=== PATIENT | male | born 1955 | race African-American/Black ===

== ENCOUNTER 2017-08-25 15:21 | Inpatient (IN) | payer OTHER ==
[~2017-08-25] VITALS: Ht 170.2 cm; Wt 48.3 kg
[2017-08-25] MEDS ORDERED: NALOXONE HCL 1 MG/ML 2 ML SYG ONE (15:25)
[2017-08-25] MEDS ORDERED: SODIUM CHLORIDE 0.9% 1,000 ML IV ONE ×4 (15:45→20:15)
[2017-08-25] MEDS ORDERED: SUCCINYLCHOLINE CHLORIDE 20 MG/ML 10 ML VIAL IVP ONE (16:30)
[2017-08-25] MEDS ORDERED: ETOMIDATE 2 MG/ML 10 ML VIAL IVP ONE (16:30)
[2017-08-25] MEDS ORDERED: NALOXONE HCL 1 MG/ML 2 ML SYG IVP ONE (16:30)
[2017-08-25 16:33] LABS: HEMOGLOBIN 15.5 g/dL (13.5-17.5); MEAN CORPUSCULAR HEMOGLOBIN 31.4 pg (26.0-34.0); MEAN CORPUSCULAR HGB CONC 30.6 G/dL (31.0-37.0); MEAN CORPUSCULAR VOLUME 103 fL (80-100); PLATELET COUNT (AUTO) 133 K/uL (150-450); RED BLOOD CELL COUNT(AUTO) 4.93 MIL/uL (4.50-5.90); RED CELL DISTRIBUTION WIDTH 15.7 % (11.5-14.5)
[2017-08-25] MEDS ORDERED: IOVERSOL 350 MG/ML 150 ML VIAL ONE (16:36)
[2017-08-25 16:40] LABS: AMPHET/METH SCREEN,URINE NEGATIVE (NEGATIVE); BARBITURATE SCREEN, URINE NEGATIVE (NEGATIVE); BENZODIAZEPINES SCREEN,URINE NEGATIVE (NEGATIVE); CANNABINOID SCREEN,URINE NEGATIVE (NEGATIVE); COCAINE SCREEN,URINE NEGATIVE (NEGATIVE); METHADONE SCREEN, URINE NEGATIVE (NEGATIVE); OPIATE SCREEN,URINE NEGATIVE (NEGATIVE)
[2017-08-25 16:42] LABS: ABG A-A DIFF O2 116.9 mmHg (10-20.0); ABG BASE EXCESS -29.3 mmol/L (-2.0-3.0); ABG CARBOXYHEMOGLOBIN 0.9 % (0.0-1.5); ABG METHEMOGLOBIN 1.1 % (0.0-1.5); ABG OXYGEN CONTENT 24.1 mL/dL (15.0-23.0); ABG PCO2 24 mmHg (35-45); ABG TOTAL HEMOGLOBIN 16.3 G/dL (12.0-18.0); PO2, ARTERIAL BG 582.9 mmHg (79.0-87.0); SOURCE, BLOOD GAS ARTERIAL; TEMPERATURE, FAHRENHEIT, BG 90.5 FAHREN (96.0-98.6)
[2017-08-25 16:42] LABS: PHENCYCLIDINE SCREEN,URINE NEGATIVE (NEGATIVE)
[2017-08-25 16:42] LABS: PROTHROMBIN TIME 10.9 SEC (9.4-11.6)
[2017-08-25 16:45] LABS: AMMONIA 70 umol/L (11-32)
[2017-08-25 16:49] LABS: SALICYLATE 8.9 mg/dL (2.8-20.0)
[2017-08-25 16:53] LABS: TROPONIN I < 0.02 ng/mL (0.00-0.05)
[2017-08-25 16:54] LABS: B-TYPE NATRIURETIC PEPTIDE 131 pg/mL (0-100)
[2017-08-25 17:03] LABS: ALANINE AMINOTRANSFERASE 13 U/L (12-78); ALBUMIN 2.8 g/dL (3.4-5.0); ALKALINE PHOSPHATASE 102 U/L (46-116); ANION GAP 40 mmol/L (8-16); ASPARTATE AMINOTRANSFERASE 24 U/L (15-37); BILIRUBIN,TOTAL 0.7 mg/dL (0.1-1.0); CHLORIDE 98 mmol/L (98-107); CREATINE KINASE MB 1.3 ng/mL (0-5); CREATINE KINASE, TOTAL 108 U/L (39-308); CREATININE 4.47 mg/dL (0.60-1.30); GLOMERULAR FILTR. RATE CALC 16 mL/min (>60); LACTIC ACID 2.5 mmol/L (0.4-2.0); POTASSIUM 5.2 mmol/L (3.5-5.1); SODIUM SERUM 145 mmol/L (136-145); TOTAL PROTEIN, SERUM 6.8 g/dL (6.4-8.2); UREA NITROGEN, BLOOD 75 mg/dL (7-18)
[2017-08-25 17:05] LABS: CARBON DIOXIDE 7 mmol/L (22-29)
[2017-08-25 17:06] LABS: ACETAMINOPHEN < 2 mcg/mL (10-30)
[2017-08-25] MEDS ORDERED: LACTULOSE 200 GM/300 ML RECTAL SOLUTION PR ONE (17:15)
[2017-08-25 17:17] LABS: BAND NEUTROPHILS % (MANUAL) 16 % (0-5); LYMPHOCYTES % (MANUAL) 9 % (22-44); MONOCYTES % (MANUAL) 10 % (2-9); SEGMENTED NEUTROPHILS % 65 % (40-70); WBC MORPHOLOGY TOXIC VACUOLATION
[2017-08-25 17:18] LABS: PLATELET MORPHOLOGY COMMENT LARGE PLTS PRESENT
[2017-08-25 17:24] LABS: GLUCOSE,RANDOM 922 mg/dL (70-110); LIPASE 5068 U/L (73-393)
[2017-08-25] MEDS ORDERED: SUCCINYLCHOLINE CHLORIDE 20 MG/ML 10 ML VIAL IM ONE (17:30)
[2017-08-25] MEDS ORDERED: ETOMIDATE 2 MG/ML 10 ML VIAL IV ONE (17:30)
[2017-08-25 17:35] LABS: APPEARANCE,URINE HAZY (CLEAR); PH,URINE 5.5 (5.0-8.0); PROTEIN,URINE SEE CONFIRM (NEGATIVE)
[2017-08-25 17:36] LABS: BILIRUBIN,URINE PRELIM. POSITIVE (NEGATIVE); GLUCOSE, URINE (UA) 500 mg/dL (NEGATIVE); KETONES,URINE >=80 mg/dL (NEGATIVE); LEUKOCYTE ESTERASE ,URINE NEGATIVE (NEGATIVE); NITRATE,URINE NEGATIVE (NEGATIVE); OCCULT BLOOD,URINE NEGATIVE (NEGATIVE); UROBILINOGEN,URINE 0.2 mg/dL (<=1.0)
[2017-08-25 17:44] LABS: BACTERIA,URINE Rare /HPF (None Seen); RBC,URINE None Seen /HPF (0-2); WBC,URINE 0-2 /HPF (0-5)
[2017-08-25 17:45] LABS: SQUAMOUS EPITHELIAL CELL,UR Rare /LPF (None Seen); SULFOSALICYLIC ACID,URINE 1+ (Negative)
[2017-08-25] MEDS ORDERED: INSULIN REGULAR, HUMAN 100 UNITS/ML IVP ONE (17:45)
[2017-08-25] MEDS ORDERED: INSULIN REGULAR, HUMAN 100 UNITS in SODIUM CHLORIDE 0.9% 99 ML IV PRN ×2 (17:45)
[2017-08-25 17:51] LABS: ABG HCO3 6.2 mmol/L (22.0-26.0); ABG PH 6.883 (7.35-7.450); O2 DEVICE,BLOOD GAS VENTILATOR (ROOM AIR); SITE, BLOOD GAS LFT RADIAL
[2017-08-25 17:52] LABS: PEEP,BG 5 cm H2O; VT, ABG 400 ml
[2017-08-25 18:30] LABS: CALCIUM, TOTAL 7.8 mg/dL (8.8-10.5); CREATININE 4.72 mg/dL (0.60-1.30); POTASSIUM 4.6 mmol/L (3.5-5.1)
[2017-08-25] MEDS ORDERED: ONDANSETRON HCL 4 MG/2 ML VIAL IVP PRN ×2 (18:30→19:45)
[2017-08-25] MEDS ORDERED: ACETAMINOPHEN 325 MG TABLET PO PRN ×2 (18:30→19:45)
[2017-08-25] MEDS ORDERED: 0.9% SODIUM CHLORIDE 10 ML SYRINGE IVP PRN (18:30)
[2017-08-25 19:33] LABS: GLUCOSE,POINT OF CARE > 600 MG/DL (70-110)
[2017-08-25] MEDS: SODIUM CHLORIDE 0.9% 1,000 ML IV SCH (19:34)
[2017-08-25] MEDS ORDERED: SODIUM CHLORIDE 0.9% 1,000 ML IV SCH (19:34)
[2017-08-25] MEDS ORDERED: SODIUM CHLORIDE 0.45% 1,000 ML IV PRN (19:34)
[2017-08-25] MEDS ORDERED: POTASSIUM CHLORIDE 20 MEQ ER TABLET PO PRN (19:45)
[2017-08-25] MEDS ORDERED: MAGNESIUM HYDROXIDE SUSPENSION 30 ML UDCUP PO PRN (19:45)
[2017-08-25] MEDS ORDERED: MAGNESIUM OXIDE 400 MG TABLET PO PRN (19:45)
[2017-08-25] MEDS ORDERED: IPRATROPIUM BROMIDE 0.5 MG/2.5 ML NEB SOLUTION NEB PRN (19:45)
[2017-08-25] MEDS ORDERED: BISACODYL 10 MG RECTAL RECTAL SUPPOSITORY PR PRN (19:45)
[2017-08-25] MEDS ORDERED: ZOLPIDEM TARTRATE 5 MG TABLET PO PRN (19:45)
[2017-08-25] MEDS ORDERED: DEXTROSE 50%-WATER 25 GM/50 ML SYRINGE IVP PRN (19:45)
[2017-08-25] MEDS ORDERED: MAGNESIUM SULFATE 4 GM/WATER 100 ML IV PRN (19:45)
[2017-08-25] MEDS ORDERED: OxyCODONE HCL/ACETAMINOPHEN 5-325 MG TABLET PO PRN (19:45)
[2017-08-25] MEDS ORDERED: ALBUTEROL SULFATE 2.5 MG/0.5 ML NEB SOLUTION NEB PRN (19:45)
[2017-08-25] MEDS ORDERED: VANCOMYCIN HCL 1 GM/D5% WATER 200 ML IV ONE (20:00)
[2017-08-25] MEDS ORDERED: VANCOMYCIN HCL 1 GM/D5% WATER 200 ML IV PRN (20:30)
[2017-08-25 21:02] LABS: ABG A-A DIFF O2 65.8 mmHg (10-20.0); ABG BASE EXCESS -25.5 mmol/L (-2.0-3.0); ABG CARBOXYHEMOGLOBIN 1.2 % (0.0-1.5); ABG METHEMOGLOBIN 0.5 % (0.0-1.5); ABG OXYGEN CONTENT 20.5 mL/dL (15.0-23.0); ABG OXYGEN SATURATION 99.2 % (95.0-98.0); ABG OXYHEMOGLOBIN 97.5 % (94.0-100.0); ABG PCO2 20 mmHg (35-45); ABG TOTAL HEMOGLOBIN 14.6 G/dL (12.0-18.0); PO2, ARTERIAL BG 200.1 mmHg (79.0-87.0); SOURCE, BLOOD GAS ARTERIAL; TEMPERATURE, FAHRENHEIT, BG 91.6 FAHREN (96.0-98.6)
[2017-08-25 21:04] LABS: O2 DEVICE,BLOOD GAS VENTILATOR (ROOM AIR); PEEP,BG 5 cm H2O; SITE, BLOOD GAS RT RADIAL; VT, ABG 400 ml
[2017-08-25 21:05] LABS: SPONTANEOUS VT, BG 638 ml
[2017-08-25 21:06] LABS: HEMATOCRIT 45.2 % (41-53); HEMOGLOBIN 14.8 g/dL (13.5-17.5); MEAN CORPUSCULAR HEMOGLOBIN 31.7 pg (26.0-34.0); MEAN CORPUSCULAR HGB CONC 32.8 G/dL (31.0-37.0); MEAN CORPUSCULAR VOLUME 97 fL (80-100); RED BLOOD CELL COUNT(AUTO) 4.67 MIL/uL (4.50-5.90); RED CELL DISTRIBUTION WIDTH 14.6 % (11.5-14.5)
[2017-08-25 21:08] LABS: OCCULT BLOOD,GASTRIC FLUID POSITIVE (NEGATIVE)
[2017-08-25 21:21] LABS: ANION GAP 33 mmol/L (8-16); CARBON DIOXIDE 10 mmol/L (22-29); CHLORIDE 108 mmol/L (98-107); CREATININE 4.37 mg/dL (0.60-1.30); GLOMERULAR FILTR. RATE CALC 17 mL/min (>60); POTASSIUM 3.2 mmol/L (3.5-5.1); SODIUM SERUM 151 mmol/L (136-145); UREA NITROGEN, BLOOD 82 mg/dL (7-18)
[2017-08-25 21:42] LABS: PLATELET COUNT (AUTO) 95 K/uL (150-450)
[2017-08-25 21:43] LABS: PLATELET MORPHOLOGY COMMENT LARGE PLTS PRESENT
[2017-08-25] MEDS: NOREPINEPHRINE 4 MG/D5%-WATER 250 ML IV PRN (21:45)
[2017-08-25 21:48] LABS: BAND NEUTROPHILS % (MANUAL) 16 % (0-5); LYMPHOCYTES % (MANUAL) 11 % (22-44); MONOCYTES % (MANUAL) 5 % (2-9); SEGMENTED NEUTROPHILS % 68 % (40-70)
[2017-08-25 21:52] LABS: WBC MORPHOLOGY TOXIC VACUOLATION
[2017-08-25 21:54] LABS: GLUCOSE,RANDOM 586 mg/dL (70-110); PHOSPHORUS 9.6 mg/dL (2.5-4.9)
[2017-08-25] MEDS: INSULIN REGULAR, HUMAN 100 UNITS/ML IVP PRN ×2 (22:26→23:25)
[2017-08-25] MEDS: POTASSIUM CHLORIDE 40 MEQ in SODIUM CHLORIDE 0.45% 1,000 ML IV PRN (23:00)
[2017-08-25] MEDS: POTASSIUM CHL 10 MEQ/WATER 50 ML IV PRN (23:24)
[2017-08-25] MEDS: PIPERACILLIN SODIUM/TAZOBACTAM 2.25 GM in DEXTROSE 5%-WATER 50 ML IV SCH (23:26)
[2017-08-25] MEDS: HEPARIN SODIUM,PORCINE 5,000 UNITS/ML VIAL SQ SCH (23:26)
[2017-08-26] VITALS: BP 81/49
[2017-08-26] MEDS: INSULIN REGULAR, HUMAN 100 UNITS/ML IVP PRN ×9 (00:16→09:10)
[2017-08-26] MEDS: POTASSIUM CHL 10 MEQ/WATER 50 ML IV PRN ×2 (00:23→01:25)
[2017-08-26] MEDS: INSULIN REGULAR, HUMAN 100 UNITS in SODIUM CHLORIDE 0.9% 99 ML IV PRN ×6 (01:41→15:27)
[2017-08-26] MEDS: SODIUM CHLORIDE 0.9% 1,000 ML IV SCH ×3 (03:34→17:39)
[2017-08-26 03:57] LABS: BASOPHILS % (AUTO) 0.9 % (0.0-2.0); EOSINOPHILS % (AUTO) 0.2 % (1.0-6.0); HEMATOCRIT 43.6 % (41-53); HEMOGLOBIN 14.4 g/dL (13.5-17.5); LYMPHOCYTES # (AUTO) 0.6 K/uL (1.0-4.8); LYMPHOCYTES % (AUTO) 11.2 % (22.0-44.0); MEAN CORPUSCULAR HEMOGLOBIN 31.2 pg (26.0-34.0); MEAN CORPUSCULAR HGB CONC 32.9 G/dL (31.0-37.0); MEAN CORPUSCULAR VOLUME 95 fL (80-100); MONOCYTES # (AUTO) 0.3 K/uL (0.1-1.0); MONOCYTES % (AUTO) 5.2 % (2.0-9.0); NEUTROPHILS # (AUTO) 4.3 K/uL (1.8-7.7); NEUTROPHILS % (AUTO) 82.5 % (40.0-70.0); PLATELET COUNT (AUTO) 60 K/uL (150-450); RED CELL DISTRIBUTION WIDTH 14.4 % (11.5-14.5)
[2017-08-26 04:00] VITALS: BP 103/55
[2017-08-26 04:11] LABS: CREATININE,URINE RANDOM 49.1 mg/dL (30.0-125.0)
[2017-08-26 04:14] LABS: HEMOGLOBIN A1C 11.5 % (4.5-6.2)
[2017-08-26 04:16] LABS: ALBUMIN 2.1 g/dL (3.4-5.0); BILIRUBIN,TOTAL 0.6 mg/dL (0.1-1.0); CALCIUM, TOTAL 6.7 mg/dL (8.8-10.5); CREATININE 4.36 mg/dL (0.60-1.30); MAGNESIUM 1.7 mg/dL (1.80-2.40); PHOSPHORUS 4.5 mg/dL (2.5-4.9); TOTAL PROTEIN, SERUM 5.4 g/dL (6.4-8.2)
[2017-08-26 06:32] LABS: CREATININE 4.16 mg/dL (0.60-1.30); POTASSIUM 3.6 mmol/L (3.5-5.1)
[2017-08-26] MEDS: PHENYLEPHRINE 200 MG/D5%-WATER 250 ML IV PRN ×2 (06:39→23:55)
[2017-08-26] MEDS: NOREPINEPHRINE 4 MG/D5%-WATER 250 ML IV PRN ×4 (06:50→21:24)
[2017-08-26 07:13] LABS: CALCIUM, TOTAL 6.1 mg/dL (8.8-10.5)
[2017-08-26 08:00] VITALS: BP 98/46
[2017-08-26] MEDS: POTASSIUM CHLORIDE 40 MEQ in SODIUM CHLORIDE 0.45% 1,000 ML IV PRN (08:07)
[2017-08-26] MEDS: PIPERACILLIN SODIUM/TAZOBACTAM 2.25 GM in DEXTROSE 5%-WATER 50 ML IV SCH ×3 (08:07→23:56)
[2017-08-26] MEDS: HEPARIN SODIUM,PORCINE 5,000 UNITS/ML VIAL SQ SCH ×2 (08:08→21:00)
[2017-08-26] MEDS: PANTOPRAZOLE SODIUM 40 MG/VIAL IVP SCH (08:08)
[2017-08-26] MEDS ORDERED: SODIUM CHLORIDE 0.9% 500 ML IV ONE (09:54)
[2017-08-26 11:52] LABS: CALCIUM, TOTAL 6.3 mg/dL (8.8-10.5); CREATININE 4.75 mg/dL (0.60-1.30); POTASSIUM 4.2 mmol/L (3.5-5.1)
[2017-08-26 12:00] VITALS: BP 108/35
[2017-08-26 12:28] LABS: CKMB RELATIVE INDEX 1.8 % (0.0-4.0); CREATINE KINASE MB 17.1 ng/mL (0-5)
[2017-08-26] MEDS ORDERED: HEPARIN SODIUM,PORCINE 1,000 UNITS/ML VIAL IV STA (14:10)
[2017-08-26] MEDS ORDERED: HEPARIN SODIUM,PORCINE 1,000 UNITS/ML VIAL IVP STA (14:10)
[2017-08-26] MEDS ORDERED: HEPARIN SODIUM 1000 UNITS/NS 500 ML ONE (14:25)
[2017-08-26 14:51] LABS: CALCIUM, TOTAL 6.5 mg/dL (8.8-10.5); CREATININE 4.6 mg/dL (0.60-1.30); POTASSIUM 4.8 mmol/L (3.5-5.1)
[2017-08-26 14:57] LABS: ABG CARBOXYHEMOGLOBIN 1.1 % (0.0-1.5); ABG METHEMOGLOBIN 0.1 % (0.0-1.5); SOURCE, BLOOD GAS ARTERIAL
[2017-08-26 15:00] LABS: ABG A-A DIFF O2 129.8 mmHg (10-20.0); ABG BASE EXCESS -20.6 mmol/L (-2.0-3.0); ABG HCO3 10.3 mmol/L (22.0-26.0); ABG OXYGEN CONTENT 19.5 mL/dL (15.0-23.0); ABG OXYGEN SATURATION 97.6 % (95.0-98.0); ABG OXYHEMOGLOBIN 96.4 % (94.0-100.0); ABG PCO2 36 mmHg (35-45); ABG PH 7.055 (7.35-7.450); ABG TOTAL HEMOGLOBIN 14.3 G/dL (12.0-18.0); PO2, ARTERIAL BG 114.4 mmHg (79.0-87.0); SITE, BLOOD GAS ARTERIAL LINE; TEMPERATURE, FAHRENHEIT, BG 98.4 FAHREN (96.0-98.6)
[2017-08-26 15:01] LABS: O2 DEVICE,BLOOD GAS VENTILATOR (ROOM AIR); VT, ABG 400 ml
[2017-08-26 15:02] LABS: PEEP,BG 5 cm H2O
[2017-08-26] MEDS: POTASSIUM CHL 20 MEQ/0.45% NS 1,000 ML IV PRN ×2 (15:09→15:27)
[2017-08-26] MEDS: DEXTROSE 5%-0.45% SODIUM CHL 1,000 ML IV PRN ×2 (15:09→15:28)
[2017-08-26] MEDS: VASOPRESSIN 40 UNITS in DEXTROSE 5%-WATER 98 ML IV PRN (15:41)
[2017-08-26 16:37] LABS: ABG A-A DIFF O2 122.1 mmHg (10-20.0); ABG BASE EXCESS -22.4 mmol/L (-2.0-3.0); ABG METHEMOGLOBIN 0.3 % (0.0-1.5); ABG OXYGEN CONTENT 18.3 mL/dL (15.0-23.0); ABG OXYGEN SATURATION 94.9 % (95.0-98.0); ABG OXYHEMOGLOBIN 93.7 % (94.0-100.0); ABG PCO2 31 mmHg (35-45); ABG TOTAL HEMOGLOBIN 13.8 G/dL (12.0-18.0); PO2, ARTERIAL BG 91.6 mmHg (79.0-87.0); SOURCE, BLOOD GAS ARTERIAL; TEMPERATURE, FAHRENHEIT, BG 98.9 FAHREN (96.0-98.6)
[2017-08-26 16:38] LABS: ABG HCO3 9.3 mmol/L (22.0-26.0); ABG PH 7.044 (7.35-7.450); O2 DEVICE,BLOOD GAS VENTILATOR (ROOM AIR); SITE, BLOOD GAS ARTERIAL LINE; VT, ABG 400 ml
[2017-08-26 16:39] LABS: PEEP,BG 5 cm H2O
[2017-08-26] MEDS ORDERED: SODIUM BICARBONATE [ADULT] 8.4% 50 MEQ/50 ML SYRINGE IVP ONE ×2 (16:51→17:00)
[2017-08-26] MEDS ORDERED: SODIUM CHLORIDE 0.9% 250 ML IV ONE (17:08)
[2017-08-26 18:00] VITALS: BP 114/22
[2017-08-26 18:42] LABS: GLUCOSE,POINT OF CARE 285 MG/DL (70-110)
[2017-08-26 18:42] LABS: GLUCOSE,POINT OF CARE 285 MG/DL (70-110)
[2017-08-26 18:42] LABS: GLUCOSE,POINT OF CARE 270 MG/DL (70-110)
[2017-08-26 18:43] LABS: GLUCOSE,POINT OF CARE 135 MG/DL (70-110)
[2017-08-26 18:43] LABS: GLUCOSE,POINT OF CARE 188 MG/DL (70-110)
[2017-08-26 18:43] LABS: GLUCOSE,POINT OF CARE 157 MG/DL (70-110)
[2017-08-26 18:43] LABS: GLUCOSE,POINT OF CARE 87 MG/DL (70-110)
[2017-08-26 18:43] LABS: GLUCOSE,POINT OF CARE 87 MG/DL (70-110)
[2017-08-26 18:43] LABS: GLUCOSE,POINT OF CARE 173 MG/DL (70-110)
[2017-08-26 18:43] LABS: GLUCOSE,POINT OF CARE 238 MG/DL (70-110)
[2017-08-26 18:43] LABS: GLUCOSE,POINT OF CARE 88 MG/DL (70-110)
[2017-08-26 20:00] VITALS: BP 120/27
[2017-08-26 20:12] LABS: GLUCOSE,POINT OF CARE 441 MG/DL (70-110)
[2017-08-26 20:13] LABS: GLUCOSE,POINT OF CARE 431 MG/DL (70-110)
[2017-08-26 20:13] LABS: GLUCOSE,POINT OF CARE 457 MG/DL (70-110)
[2017-08-26 20:13] LABS: GLUCOSE,POINT OF CARE 302 MG/DL (70-110)
[2017-08-26 20:13] LABS: GLUCOSE,POINT OF CARE 347 MG/DL (70-110)
[2017-08-26 20:13] LABS: GLUCOSE,POINT OF CARE 391 MG/DL (70-110)
[2017-08-26 20:13] LABS: ABG A-A DIFF O2 129.9 mmHg (10-20.0); ABG BASE EXCESS -16.2 mmol/L (-2.0-3.0); ABG CARBOXYHEMOGLOBIN 1.3 % (0.0-1.5); ABG HCO3 12.9 mmol/L (22.0-26.0); ABG METHEMOGLOBIN 0.3 % (0.0-1.5); ABG OXYGEN CONTENT 18.2 mL/dL (15.0-23.0); ABG OXYGEN SATURATION 93.1 % (95.0-98.0); ABG OXYHEMOGLOBIN 91.6 % (94.0-100.0); ABG PCO2 37 mmHg (35-45); ABG TOTAL HEMOGLOBIN 14.1 G/dL (12.0-18.0); PO2, ARTERIAL BG 76.3 mmHg (79.0-87.0); TEMPERATURE, FAHRENHEIT, BG 99.1 FAHREN (96.0-98.6)
[2017-08-26 20:13] LABS: GLUCOSE,POINT OF CARE 354 MG/DL (70-110)
[2017-08-26 20:13] LABS: GLUCOSE,POINT OF CARE 450 MG/DL (70-110)
[2017-08-26 20:13] LABS: GLUCOSE,POINT OF CARE 384 MG/DL (70-110)
[2017-08-26 20:24] LABS: SITE, BLOOD GAS RT FEMORAL
[2017-08-26 20:25] LABS: O2 DEVICE,BLOOD GAS VENTILATOR (ROOM AIR); PEEP,BG 5 cm H2O; SOURCE, BLOOD GAS ART LINE; VT, ABG 400 ml
[2017-08-26 21:25] LABS: CALCIUM, TOTAL 6.1 mg/dL (8.8-10.5); CREATINE KINASE MB 26.7 ng/mL (0-5); CREATININE 4.52 mg/dL (0.60-1.30); POTASSIUM 4.7 mmol/L (3.5-5.1)
[2017-08-26 21:28] LABS: CKMB RELATIVE INDEX 1.7 % (0.0-4.0)
[2017-08-27] VITALS: BP 115/36
[2017-08-27 01:07] LABS: GLUCOSE,POINT OF CARE 85 MG/DL (70-110)
[2017-08-27 01:07] LABS: GLUCOSE,POINT OF CARE 84 MG/DL (70-110)
[2017-08-27 01:07] LABS: GLUCOSE,POINT OF CARE 94 MG/DL (70-110)
[2017-08-27 01:07] LABS: GLUCOSE,POINT OF CARE 105 MG/DL (70-110)
[2017-08-27 01:07] LABS: GLUCOSE,POINT OF CARE 115 MG/DL (70-110)
[2017-08-27 01:07] LABS: GLUCOSE,POINT OF CARE 96 MG/DL (70-110)
[2017-08-27] MEDS ORDERED: POTASSIUM CHL 20 MEQ/0.45% NS 1,000 ML IV PRN (03:00)
[2017-08-27] MEDS: NOREPINEPHRINE BITARTRATE 8 MG in DEXTROSE 5%-WATER 242 ML IV PRN ×2 (03:21→13:36)
[2017-08-27] MEDS: VASOPRESSIN 40 UNITS in DEXTROSE 5%-WATER 98 ML IV PRN ×2 (03:22→20:54)
[2017-08-27] MEDS: DEXTROSE 5%-0.45% SODIUM CHL 1,000 ML IV PRN ×2 (03:27→15:47)
[2017-08-27] MEDS: SODIUM CHLORIDE 0.9% 1,000 ML IV SCH (03:34)
[2017-08-27 03:48] LABS: GLUCOSE,POINT OF CARE 99 MG/DL (70-110)
[2017-08-27 03:48] LABS: GLUCOSE,POINT OF CARE 91 MG/DL (70-110)
[2017-08-27 04:00] VITALS: BP 124/47
[2017-08-27 06:47] LABS: BASOPHILS % (AUTO) 0.5 % (0.0-2.0); EOSINOPHILS % (AUTO) 0.7 % (1.0-6.0); HEMATOCRIT 38.7 % (41-53); HEMOGLOBIN 13.4 g/dL (13.5-17.5); LYMPHOCYTES # (AUTO) 0.4 K/uL (1.0-4.8); LYMPHOCYTES % (AUTO) 9.3 % (22.0-44.0); MEAN CORPUSCULAR HEMOGLOBIN 31.4 pg (26.0-34.0); MEAN CORPUSCULAR HGB CONC 34.7 G/dL (31.0-37.0); MEAN CORPUSCULAR VOLUME 91 fL (80-100); MONOCYTES # (AUTO) 0.2 K/uL (0.1-1.0); MONOCYTES % (AUTO) 3.8 % (2.0-9.0); NEUTROPHILS # (AUTO) 3.9 K/uL (1.8-7.7); RED BLOOD CELL COUNT(AUTO) 4.28 MIL/uL (4.50-5.90); RED CELL DISTRIBUTION WIDTH 14.5 % (11.5-14.5)
[2017-08-27 06:49] LABS: GLUCOSE,POINT OF CARE 116 MG/DL (70-110)
[2017-08-27 06:49] LABS: GLUCOSE,POINT OF CARE 99 MG/DL (70-110)
[2017-08-27 06:49] LABS: GLUCOSE,POINT OF CARE 109 MG/DL (70-110)
[2017-08-27 07:00] LABS: NEUTROPHILS % (AUTO) 85.7 % (40.0-70.0); PLATELET COUNT (AUTO) 23 K/uL (150-450)
[2017-08-27 07:01] LABS: PLATELET MORPHOLOGY COMMENT LARGE PLTS PRESENT
[2017-08-27 08:00] VITALS: BP 103/38
[2017-08-27 08:16] LABS: ALBUMIN 1.4 g/dL (3.4-5.0); BILIRUBIN,TOTAL 0.5 mg/dL (0.1-1.0); CREATINE KINASE MB 38.1 ng/mL (0-5); CREATININE 3.48 mg/dL (0.60-1.30); MAGNESIUM 1.3 mg/dL (1.80-2.40); PHOSPHORUS 3.3 mg/dL (2.5-4.9); POTASSIUM 5.6 mmol/L (3.5-5.1); THYROID STIMULATING HORMONE 0.8 uIU/mL (0.36-3.74); TOTAL PROTEIN, SERUM 4.4 g/dL (6.4-8.2); VANCOMYCIN,RANDOM 11.6 mcg/mL (25.0-50.0)
[2017-08-27 08:22] LABS: CKMB RELATIVE INDEX 1.7 % (0.0-4.0)
[2017-08-27] MEDS: PANTOPRAZOLE SODIUM 40 MG/VIAL IVP SCH (08:26)
[2017-08-27 08:47] LABS: ABG A-A DIFF O2 167.4 mmHg (10-20.0); ABG BASE EXCESS -16.2 mmol/L (-2.0-3.0); ABG CARBOXYHEMOGLOBIN 0.9 % (0.0-1.5); ABG HCO3 13.1 mmol/L (22.0-26.0); ABG METHEMOGLOBIN 0.3 % (0.0-1.5); ABG OXYGEN CONTENT 15.4 mL/dL (15.0-23.0); ABG OXYGEN SATURATION 90.2 % (95.0-98.0); ABG OXYHEMOGLOBIN 89.1 % (94.0-100.0); ABG PCO2 26 mmHg (35-45); ABG PH 7.251 (7.35-7.450); ABG TOTAL HEMOGLOBIN 12.3 G/dL (12.0-18.0); PO2, ARTERIAL BG 53.9 mmHg (79.0-87.0); SOURCE, BLOOD GAS ARTERIAL; TEMPERATURE, FAHRENHEIT, BG 94.1 FAHREN (96.0-98.6)
[2017-08-27] MEDS: PIPERACILLIN SODIUM/TAZOBACTAM 4.5 GM in DEXTROSE 5%-WATER 100 ML IV SCH ×2 (08:48→17:11)
[2017-08-27 08:50] LABS: O2 DEVICE,BLOOD GAS VENTILATOR (ROOM AIR); SITE, BLOOD GAS ARTLINE
[2017-08-27 08:53] LABS: PEEP,BG 5 cm H2O; VT, ABG 400 ml
[2017-08-27] MEDS ORDERED: VANCOMYCIN HCL 1 GM/D5% WATER 200 ML IV ONE (09:00)
[2017-08-27] MEDS ORDERED: MAGNESIUM SULFATE 4 GM/WATER 100 ML IV ONE (09:45)
[2017-08-27] MEDS ORDERED: SODIUM CITRATE 4% CATH FLUSH 5 ML SYRINGE IVCATH ONE ×3 (09:45→13:15)
[2017-08-27] MEDS ORDERED: SODIUM CHLORIDE 0.45% 1,000 ML IV SCH (10:30)
[2017-08-27] MEDS ORDERED: SODIUM CHLORIDE 0.45% 1,000 ML IV ONE (10:40)
[2017-08-27] MEDS: DOPamine HCL 400 MG/D5%-WATER 250 ML IV PRN (10:45)
[2017-08-27 11:13] LABS: ABG A-A DIFF O2 254.6 mmHg (10-20.0); ABG BASE EXCESS -20.4 mmol/L (-2.0-3.0); ABG CARBOXYHEMOGLOBIN 1.2 % (0.0-1.5); ABG HCO3 10.3 mmol/L (22.0-26.0); ABG METHEMOGLOBIN 0.3 % (0.0-1.5); ABG OXYGEN CONTENT 17.4 mL/dL (15.0-23.0); ABG OXYGEN SATURATION 93.3 % (95.0-98.0); ABG OXYHEMOGLOBIN 91.9 % (94.0-100.0); ABG PCO2 30 mmHg (35-45); ABG TOTAL HEMOGLOBIN 13.4 G/dL (12.0-18.0); PO2, ARTERIAL BG 71.3 mmHg (79.0-87.0); SOURCE, BLOOD GAS ARTERIAL; TEMPERATURE, FAHRENHEIT, BG 94.1 FAHREN (96.0-98.6)
[2017-08-27 11:14] LABS: O2 DEVICE,BLOOD GAS VENTILATOR (ROOM AIR); PEEP,BG 5 cm H2O; SITE, BLOOD GAS ARTLINE; VT, ABG 400 ml
[2017-08-27 11:18] LABS: ALBUMIN 1.3 g/dL (3.4-5.0); BILIRUBIN,TOTAL 0.5 mg/dL (0.1-1.0); CREATININE 3.61 mg/dL (0.60-1.30); POTASSIUM 5.9 mmol/L (3.5-5.1)
[2017-08-27 11:34] LABS: CALCIUM, TOTAL 5.9 mg/dL (8.8-10.5)
[2017-08-27] MEDS ORDERED: CALCIUM GLUCONATE 100 MG/ML 10 ML IVP ONE (11:45)
[2017-08-27] MEDS ORDERED: SODIUM CHLORIDE 0.9% 2,000 ML IV ONE (11:56)
[2017-08-27 12:00] VITALS: BP 231/58
[2017-08-27] MEDS ORDERED: SODIUM BICARBONATE [ADULT] 8.4% 50 MEQ/50 ML SYRINGE IVP ONE (12:15)
[2017-08-27 12:48] LABS: GLUCOSE,POINT OF CARE 117 MG/DL (70-110)
[2017-08-27 15:05] LABS: ALBUMIN 1.3 g/dL (3.4-5.0); BILIRUBIN,TOTAL 0.6 mg/dL (0.1-1.0); CALCIUM, TOTAL 6.1 mg/dL (8.8-10.5); CREATININE 3.03 mg/dL (0.60-1.30); POTASSIUM 5.1 mmol/L (3.5-5.1); TOTAL PROTEIN, SERUM 4.1 g/dL (6.4-8.2)
[2017-08-27 15:13] LABS: BASOPHILS % (AUTO) 0.2 % (0.0-2.0); EOSINOPHILS % (AUTO) 0.5 % (1.0-6.0); HEMATOCRIT 37.6 % (41-53); LYMPHOCYTES # (AUTO) 0.3 K/uL (1.0-4.8); LYMPHOCYTES % (AUTO) 7.4 % (22.0-44.0); MEAN CORPUSCULAR HEMOGLOBIN 31.1 pg (26.0-34.0); MEAN CORPUSCULAR HGB CONC 34.5 G/dL (31.0-37.0); MEAN CORPUSCULAR VOLUME 90 fL (80-100); MONOCYTES # (AUTO) 0.1 K/uL (0.1-1.0); MONOCYTES % (AUTO) 2.6 % (2.0-9.0); NEUTROPHILS # (AUTO) 3.3 K/uL (1.8-7.7); RED BLOOD CELL COUNT(AUTO) 4.17 MIL/uL (4.50-5.90); RED CELL DISTRIBUTION WIDTH 15.2 % (11.5-14.5)
[2017-08-27 15:37] LABS: NEUTROPHILS % (AUTO) 89.3 % (40.0-70.0); PLATELET COUNT (AUTO) 12 K/uL (150-450); PLATELET MORPHOLOGY COMMENT LARGE PLTS PRESENT
[2017-08-27 16:00] VITALS: BP 140/48
[2017-08-27] MEDS: PANTOPRAZOLE SODIUM 80 MG in SODIUM CHLORIDE 0.9% 100 ML IV SCH (17:18)
[2017-08-27] MEDS: PHENYLEPHRINE 200 MG/D5%-WATER 250 ML IV PRN (17:20)
[2017-08-27 19:23] LABS: ALBUMIN 1.2 g/dL (3.4-5.0); BILIRUBIN,TOTAL 0.5 mg/dL (0.1-1.0); CREATININE 2.73 mg/dL (0.60-1.30); POTASSIUM 4.8 mmol/L (3.5-5.1); TOTAL PROTEIN, SERUM 3.8 g/dL (6.4-8.2)
[2017-08-27 19:38] LABS: CALCIUM, TOTAL 5.8 mg/dL (8.8-10.5)
[2017-08-27 20:00] VITALS: BP 143/34
[2017-08-27] MEDS: SODIUM CHLORIDE 0.45% 1,000 ML IV PRN (20:47)
[2017-08-27] MEDS ORDERED: CALCIUM GLUCONATE 2,000 MG in DEXTROSE 5%-WATER 50 ML IV ONE (22:30)
[2017-08-27 22:59] LABS: ALBUMIN 1.1 g/dL (3.4-5.0); BILIRUBIN,TOTAL 0.4 mg/dL (0.1-1.0); CREATININE 2.38 mg/dL (0.60-1.30); TOTAL PROTEIN, SERUM 3.7 g/dL (6.4-8.2)
[2017-08-27 23:10] LABS: CALCIUM, TOTAL 5.9 mg/dL (8.8-10.5)
[2017-08-28] VITALS (9 sets, daily range): BP systolic 96–159; BP diastolic 36–58
[2017-08-28] MEDS: PIPERACILLIN SODIUM/TAZOBACTAM 4.5 GM in DEXTROSE 5%-WATER 100 ML IV SCH ×3 (00:17→15:48)
[2017-08-28] MEDS ORDERED: SODIUM CHLORIDE 0.9% 500 ML IV ONE ×2 (00:54→08:26)
[2017-08-28] MEDS: DOPamine HCL 400 MG/D5%-WATER 250 ML IV PRN (02:08)
[2017-08-28] MEDS: SODIUM CHLORIDE 0.45% 1,000 ML IV PRN (02:08)
[2017-08-28] MEDS: PANTOPRAZOLE SODIUM 80 MG in SODIUM CHLORIDE 0.9% 100 ML IV SCH ×3 (02:09→21:23)
[2017-08-28] MEDS: DEXTROSE 5%-0.45% SODIUM CHL 1,000 ML IV PRN (03:36)
[2017-08-28 03:46] LABS: BILIRUBIN,TOTAL 0.4 mg/dL (0.1-1.0); CALCIUM, TOTAL 6.3 mg/dL (8.8-10.5); CREATININE 2.18 mg/dL (0.60-1.30); POTASSIUM 4.9 mmol/L (3.5-5.1); TOTAL PROTEIN, SERUM 3.4 g/dL (6.4-8.2)
[2017-08-28] MEDS ORDERED: CALCIUM GLUCONATE 1,000 MG in DEXTROSE 5%-WATER 50 ML IV ONE (05:00)
[2017-08-28 06:48] LABS: GLUCOSE,POINT OF CARE 99 MG/DL (70-110)
[2017-08-28 06:48] LABS: GLUCOSE,POINT OF CARE 191 MG/DL (70-110)
[2017-08-28 06:48] LABS: GLUCOSE,POINT OF CARE 174 MG/DL (70-110)
[2017-08-28 06:48] LABS: GLUCOSE,POINT OF CARE 93 MG/DL (70-110)
[2017-08-28 06:48] LABS: GLUCOSE,POINT OF CARE 103 MG/DL (70-110)
[2017-08-28 06:48] LABS: GLUCOSE,POINT OF CARE 89 MG/DL (70-110)
[2017-08-28 06:48] LABS: GLUCOSE,POINT OF CARE 197 MG/DL (70-110)
[2017-08-28 06:48] LABS: GLUCOSE,POINT OF CARE 196 MG/DL (70-110)
[2017-08-28 06:48] LABS: GLUCOSE,POINT OF CARE 207 MG/DL (70-110)
[2017-08-28 06:48] LABS: GLUCOSE,POINT OF CARE 113 MG/DL (70-110)
[2017-08-28 06:48] LABS: GLUCOSE,POINT OF CARE 137 MG/DL (70-110)
[2017-08-28 06:48] LABS: GLUCOSE,POINT OF CARE 192 MG/DL (70-110)
[2017-08-28 06:48] LABS: GLUCOSE,POINT OF CARE 198 MG/DL (70-110)
[2017-08-28 06:48] LABS: GLUCOSE,POINT OF CARE 201 MG/DL (70-110)
[2017-08-28 06:48] LABS: GLUCOSE,POINT OF CARE 102 MG/DL (70-110)
[2017-08-28 06:48] LABS: GLUCOSE,POINT OF CARE 181 MG/DL (70-110)
[2017-08-28 06:48] LABS: GLUCOSE,POINT OF CARE 103 MG/DL (70-110)
[2017-08-28 06:48] LABS: GLUCOSE,POINT OF CARE 133 MG/DL (70-110)
[2017-08-28 06:49] LABS: GLUCOSE,POINT OF CARE 123 MG/DL (70-110)
[2017-08-28 07:32] LABS: BILIRUBIN,TOTAL 0.5 mg/dL (0.1-1.0); CALCIUM, TOTAL 6.4 mg/dL (8.8-10.5); CREATININE 2.01 mg/dL (0.60-1.30); MAGNESIUM 1.7 mg/dL (1.80-2.40); PHOSPHORUS 4.4 mg/dL (2.5-4.9); POTASSIUM 4.9 mmol/L (3.5-5.1); TOTAL PROTEIN, SERUM 3.4 g/dL (6.4-8.2); VANCOMYCIN,RANDOM 18.9 mcg/mL (25.0-50.0)
[2017-08-28 07:34] LABS: BASOPHILS % (AUTO) 0.2 % (0.0-2.0); EOSINOPHILS % (AUTO) 2.8 % (1.0-6.0); HEMATOCRIT 29.9 % (41-53); HEMOGLOBIN 10.5 g/dL (13.5-17.5); LYMPHOCYTES # (AUTO) 0.3 K/uL (1.0-4.8); LYMPHOCYTES % (AUTO) 13.6 % (22.0-44.0); MEAN CORPUSCULAR HEMOGLOBIN 31.4 pg (26.0-34.0); MEAN CORPUSCULAR HGB CONC 35.1 G/dL (31.0-37.0); MEAN CORPUSCULAR VOLUME 90 fL (80-100); MONOCYTES % (AUTO) 1.4 % (2.0-9.0); NEUTROPHILS # (AUTO) 1.7 K/uL (1.8-7.7); RED BLOOD CELL COUNT(AUTO) 3.34 MIL/uL (4.50-5.90); RED CELL DISTRIBUTION WIDTH 14.7 % (11.5-14.5)
[2017-08-28 08:32] LABS: PLATELET COUNT (AUTO) 5 K/uL (150-450)
[2017-08-28 09:59] LABS: ABG A-A DIFF O2 387.7 mmHg (10-20.0); ABG CARBOXYHEMOGLOBIN 1.2 % (0.0-1.5); ABG HCO3 19.4 mmol/L (22.0-26.0); ABG METHEMOGLOBIN 0.4 % (0.0-1.5); ABG OXYGEN CONTENT 14.5 mL/dL (15.0-23.0); ABG OXYGEN SATURATION 96.3 % (95.0-98.0); ABG OXYHEMOGLOBIN 94.8 % (94.0-100.0); ABG PCO2 31 mmHg (35-45); ABG PH 7.381 (7.35-7.450); ABG TOTAL HEMOGLOBIN 10.8 G/dL (12.0-18.0); PO2, ARTERIAL BG 79.7 mmHg (79.0-87.0); SOURCE, BLOOD GAS ARTERIAL; TEMPERATURE, FAHRENHEIT, BG 96.7 FAHREN (96.0-98.6)
[2017-08-28 10:00] LABS: O2 DEVICE,BLOOD GAS VENTILATOR (ROOM AIR); PEEP,BG 5 cm H2O; SITE, BLOOD GAS ARTERIAL LINE; VT, ABG 400 ml
[2017-08-28] MEDS ORDERED: VANCOMYCIN HCL 1 GM/D5% WATER 200 ML IV ONE (10:00)
[2017-08-28] MEDS: LevETIRAcetam 500 MG in DEXTROSE 5%-WATER 100 ML IV SCH ×2 (10:19→21:22)
[2017-08-28] MEDS ORDERED: SODIUM CHLORIDE 0.9% 250 ML IV ONE (11:41)
[2017-08-28] MEDS: INSULIN REGULAR, HUMAN 100 UNITS/ML SQ PRN (11:44)
[2017-08-28 11:55] LABS: BILIRUBIN,TOTAL 0.6 mg/dL (0.1-1.0); CALCIUM, TOTAL 6.2 mg/dL (8.8-10.5); CREATININE 1.9 mg/dL (0.60-1.30); TOTAL PROTEIN, SERUM 3.5 g/dL (6.4-8.2)
[2017-08-28] MEDS ORDERED: MAGNESIUM SULFATE 2 GM in DEXTROSE 5%-WATER 50 ML IV ONE (13:00)
[2017-08-28] MEDS ORDERED: SODIUM CHLORIDE 3% 500 ML IV SCH (13:00)
[2017-08-28] MEDS: POTASSIUM CHLORIDE 20 MEQ in NXSTAGE RFP-402 K0/CA3 5,000 ML IRRIG PRN (13:10)
[2017-08-28] MEDS: VASOPRESSIN 40 UNITS in DEXTROSE 5%-WATER 98 ML IV PRN (13:56)
[2017-08-28] MEDS: DOPamine HCL 800 MG/D5%-WATER 250 ML IV PRN (15:48)
[2017-08-28] MEDS ORDERED: EPINEPHrine 1:10,000 [1 MG/10 ML] SYRINGE IVP ONE ×2 (17:26→17:28)
[2017-08-28] MEDS ORDERED: ATROPINE SULFATE 0.1 MG/ML 10 ML SYRINGE IVP ONE ×2 (17:26→17:28)
[2017-08-28] MEDS ORDERED: SODIUM BICARBONATE [ADULT] 8.4% 50 MEQ/50 ML SYRINGE IVP ONE (17:28)
[2017-08-28] MEDS ORDERED: DOPamine HCL/D5W 400 MG/250 ML IV BAG IV ONE (17:28)
[2017-08-28 18:50] LABS: BILIRUBIN,TOTAL 0.6 mg/dL (0.1-1.0); CALCIUM, TOTAL 6.3 mg/dL (8.8-10.5); CREATININE 1.8 mg/dL (0.60-1.30); POTASSIUM 4.7 mmol/L (3.5-5.1); TOTAL PROTEIN, SERUM 3.8 g/dL (6.4-8.2)
[2017-08-28] MEDS: INSULIN GLARGINE,HUM.REC.ANLOG 100 UNITS/ML SQ SCH (21:00)
[2017-08-28 23:05] LABS: BILIRUBIN,TOTAL 0.6 mg/dL (0.1-1.0); CALCIUM, TOTAL 6.3 mg/dL (8.8-10.5); CREATININE 1.76 mg/dL (0.60-1.30); POTASSIUM 4.6 mmol/L (3.5-5.1); TOTAL PROTEIN, SERUM 3.6 g/dL (6.4-8.2)
[2017-08-29] VITALS: BP 98/36
[2017-08-29] MEDS: PIPERACILLIN SODIUM/TAZOBACTAM 4.5 GM in DEXTROSE 5%-WATER 100 ML IV SCH ×4 (00:04→23:31)
[2017-08-29 04:00] VITALS: BP 104/39
[2017-08-29] MEDS ORDERED: SODIUM CHLORIDE 0.9% 250 ML IV ONE (04:12)
[2017-08-29 05:53] LABS: BILIRUBIN,TOTAL 0.7 mg/dL (0.1-1.0); CALCIUM, TOTAL 6.6 mg/dL (8.8-10.5); CREATININE 1.6 mg/dL (0.60-1.30); MAGNESIUM 1.9 mg/dL (1.80-2.40); PHOSPHORUS 3.7 mg/dL (2.5-4.9); POTASSIUM 4.4 mmol/L (3.5-5.1); TOTAL PROTEIN, SERUM 3.9 g/dL (6.4-8.2); VANCOMYCIN,RANDOM 24.7 mcg/mL (25.0-50.0)
[2017-08-29 06:29] LABS: BASOPHILS % (AUTO) 0.3 % (0.0-2.0); EOSINOPHILS % (AUTO) 3.3 % (1.0-6.0); HEMATOCRIT 29.5 % (41-53); HEMOGLOBIN 10.6 g/dL (13.5-17.5); LYMPHOCYTES # (AUTO) 0.1 K/uL (1.0-4.8); LYMPHOCYTES % (AUTO) 6.6 % (22.0-44.0); MEAN CORPUSCULAR HEMOGLOBIN 31.6 pg (26.0-34.0); MEAN CORPUSCULAR HGB CONC 35.9 G/dL (31.0-37.0); MEAN CORPUSCULAR VOLUME 88 fL (80-100); MONOCYTES # (AUTO) 0.1 K/uL (0.1-1.0); MONOCYTES % (AUTO) 4.5 % (2.0-9.0); NEUTROPHILS # (AUTO) 1.5 K/uL (1.8-7.7); RED BLOOD CELL COUNT(AUTO) 3.35 MIL/uL (4.50-5.90); RED CELL DISTRIBUTION WIDTH 14.9 % (11.5-14.5)
[2017-08-29 07:08] LABS: NEUTROPHILS % (AUTO) 85.3 % (40.0-70.0); PLATELET COUNT (AUTO) 10 K/uL (150-450)
[2017-08-29 08:00] VITALS: BP 106/40
[2017-08-29 08:01] LABS: PLATELET MORPHOLOGY COMMENT GIANT PLTS PRESENT
[2017-08-29 08:28] LABS: GLUCOSE,POINT OF CARE 123 MG/DL (70-110)
[2017-08-29 08:28] LABS: GLUCOSE,POINT OF CARE 152 MG/DL (70-110)
[2017-08-29 08:28] LABS: GLUCOSE,POINT OF CARE 105 MG/DL (70-110)
[2017-08-29 08:28] LABS: GLUCOSE,POINT OF CARE 114 MG/DL (70-110)
[2017-08-29 08:28] LABS: GLUCOSE,POINT OF CARE 97 MG/DL (70-110)
[2017-08-29 08:28] LABS: GLUCOSE,POINT OF CARE 134 MG/DL (70-110)
[2017-08-29 08:28] LABS: GLUCOSE,POINT OF CARE 97 MG/DL (70-110)
[2017-08-29 08:32] LABS: GLUCOSE,POINT OF CARE 72 MG/DL (70-110)
[2017-08-29] MEDS: PANTOPRAZOLE SODIUM 80 MG in SODIUM CHLORIDE 0.9% 100 ML IV SCH ×2 (08:38→17:09)
[2017-08-29 10:27] LABS: ABG A-A DIFF O2 138.5 mmHg (10-20.0); ABG BASE EXCESS -1.4 mmol/L (-2.0-3.0); ABG CARBOXYHEMOGLOBIN 0.7 % (0.0-1.5); ABG METHEMOGLOBIN 0.3 % (0.0-1.5); ABG OXYGEN CONTENT 14.9 mL/dL (15.0-23.0); ABG OXYGEN SATURATION 94.4 % (95.0-98.0); ABG OXYHEMOGLOBIN 93.5 % (94.0-100.0); ABG PCO2 30 mmHg (35-45); ABG PH 7.488 (7.35-7.450); ABG TOTAL HEMOGLOBIN 11.3 G/dL (12.0-18.0); PO2, ARTERIAL BG 76.5 mmHg (79.0-87.0); SOURCE, BLOOD GAS ARTERIAL; TEMPERATURE, FAHRENHEIT, BG 98.6 FAHREN (96.0-98.6)
[2017-08-29 10:28] LABS: O2 DEVICE,BLOOD GAS VENTILATOR (ROOM AIR); PEEP,BG 5 cm H2O; SITE, BLOOD GAS ARTERIAL LINE; VT, ABG 400 ml
[2017-08-29] MEDS: LevETIRAcetam 500 MG in DEXTROSE 5%-WATER 100 ML IV SCH ×2 (10:59→22:09)
[2017-08-29 12:00] VITALS: BP 111/39
[2017-08-29 16:00] VITALS: BP 114/41
[2017-08-29] MEDS: POTASSIUM CHLORIDE 20 MEQ in NXSTAGE RFP-402 K0/CA3 5,000 ML IRRIG PRN ×2 (17:09→21:00)
[2017-08-29] MEDS: DOPamine HCL 800 MG/D5%-WATER 250 ML IV PRN (17:10)
[2017-08-29 17:27] LABS: GLUCOSE,POINT OF CARE 93 MG/DL (70-110)
[2017-08-29 17:27] LABS: GLUCOSE,POINT OF CARE 82 MG/DL (70-110)
[2017-08-29] MEDS ORDERED: SODIUM CHLORIDE 0.9% 500 ML IV ONE (18:08)
[2017-08-29 20:00] VITALS: BP 92/34
[2017-08-29] MEDS: INSULIN GLARGINE,HUM.REC.ANLOG 100 UNITS/ML SQ SCH (21:00)
[2017-08-29 21:33] LABS: GLUCOSE,POINT OF CARE 101 MG/DL (70-110)
[2017-08-30] VITALS (12 sets, daily range): BP systolic 94–118; BP diastolic 35–48
[2017-08-30 00:18] LABS: GLUCOSE,POINT OF CARE 103 MG/DL (70-110)
[2017-08-30] MEDS: PANTOPRAZOLE SODIUM 80 MG in SODIUM CHLORIDE 0.9% 100 ML IV SCH (03:16)
[2017-08-30] MEDS ORDERED: SODIUM CHLORIDE 0.9% 250 ML IV ONE ×2 (03:57→08:26)
[2017-08-30 04:57] LABS: GLUCOSE,POINT OF CARE 104 MG/DL (70-110)
[2017-08-30 05:04] LABS: HEMATOCRIT 29.9 % (41-53); HEMOGLOBIN 10.5 g/dL (13.5-17.5); LYMPHOCYTES # (AUTO) 0.3 K/uL (1.0-4.8); LYMPHOCYTES % (AUTO) 5.2 % (22.0-44.0); MEAN CORPUSCULAR HEMOGLOBIN 31.5 pg (26.0-34.0); MEAN CORPUSCULAR HGB CONC 35.2 G/dL (31.0-37.0); MEAN CORPUSCULAR VOLUME 90 fL (80-100); MONOCYTES # (AUTO) 0.3 K/uL (0.1-1.0); MONOCYTES % (AUTO) 6.4 % (2.0-9.0); NEUTROPHILS # (AUTO) 4.6 K/uL (1.8-7.7); RED BLOOD CELL COUNT(AUTO) 3.34 MIL/uL (4.50-5.90); RED CELL DISTRIBUTION WIDTH 15.3 % (11.5-14.5)
[2017-08-30 05:18] LABS: ALANINE AMINOTRANSFERASE 290 U/L (12-78); ALKALINE PHOSPHATASE 81 U/L (46-116); ANION GAP 9 mmol/L (8-16); ASPARTATE AMINOTRANSFERASE 328 U/L (15-37); BILIRUBIN,TOTAL 0.8 mg/dL (0.1-1.0); CALCIUM, TOTAL 6.8 mg/dL (8.8-10.5); CARBON DIOXIDE 25 mmol/L (22-29); CHLORIDE 103 mmol/L (98-107); CREATININE 1.42 mg/dL (0.60-1.30); GLOMERULAR FILTR. RATE CALC > 60 mL/min (>60); GLUCOSE,RANDOM 101 mg/dL (70-110); PHOSPHORUS 2.3 mg/dL (2.5-4.9); SODIUM SERUM 137 mmol/L (136-145); TOTAL PROTEIN, SERUM 4.1 g/dL (6.4-8.2); UREA NITROGEN, BLOOD 21 mg/dL (7-18)
[2017-08-30 05:47] LABS: NEUTROPHILS % (AUTO) 86.4 % (40.0-70.0); PLATELET COUNT (AUTO) 4 K/uL (150-450)
[2017-08-30] MEDS ORDERED: POTASSIUM PHOS,M-BASIC-D-BASIC 10 MEQ in DEXTROSE 5%-WATER 50 ML IV ONE (07:45)
[2017-08-30] MEDS ORDERED: MAGNESIUM SULFATE 1 GM in DEXTROSE 5%-WATER 50 ML IV ONE (08:00)
[2017-08-30] MEDS ORDERED: VANCOMYCIN HCL 1 GM/D5% WATER 200 ML IV ONE (08:15)
[2017-08-30] MEDS: ALBUMIN HUMAN 25%-25GM/100ML 100 ML IV SCH ×3 (08:22→23:32)
[2017-08-30 08:23] LABS: GLUCOSE,POINT OF CARE 95 MG/DL (70-110)
[2017-08-30] MEDS: PIPERACILLIN SODIUM/TAZOBACTAM 4.5 GM in DEXTROSE 5%-WATER 100 ML IV SCH ×3 (08:23→23:32)
[2017-08-30] MEDS: LevETIRAcetam 500 MG in DEXTROSE 5%-WATER 100 ML IV SCH ×2 (09:57→22:17)
[2017-08-30] MEDS ORDERED: SODIUM CHLORIDE 0.9% 1,000 ML IV ONE (12:30)
[2017-08-30 13:32] LABS: GLUCOSE,POINT OF CARE 137 MG/DL (70-110)
[2017-08-30 16:06] LABS: ABG A-A DIFF O2 133.6 mmHg (10-20.0); ABG BASE EXCESS -4.6 mmol/L (-2.0-3.0); ABG CARBOXYHEMOGLOBIN 0.9 % (0.0-1.5); ABG HCO3 21.3 mmol/L (22.0-26.0); ABG METHEMOGLOBIN 0.1 % (0.0-1.5); ABG OXYGEN CONTENT 16.5 mL/dL (15.0-23.0); ABG OXYGEN SATURATION 95.8 % (95.0-98.0); ABG OXYHEMOGLOBIN 94.8 % (94.0-100.0); ABG PCO2 32 mmHg (35-45); ABG PH 7.417 (7.35-7.450); ABG TOTAL HEMOGLOBIN 12.3 G/dL (12.0-18.0); PO2, ARTERIAL BG 79.5 mmHg (79.0-87.0); SOURCE, BLOOD GAS ARTERIAL
[2017-08-30 16:07] LABS: O2 DEVICE,BLOOD GAS VENTILATOR (ROOM AIR); PEEP,BG 5 cm H2O; PRESSURE SUPPORT, BG 8 cm H2O; SITE, BLOOD GAS ARTERIAL LINE; SPONTANEOUS VT, BG 428 ml; VENT MODE, BG SPONTANEOUS (ROOM AIR)
[2017-08-30] MEDS: INSULIN REGULAR, HUMAN 100 UNITS/ML SQ PRN (17:10)
[2017-08-30 17:13] LABS: GLUCOSE,POINT OF CARE 154 MG/DL (70-110)
[2017-08-30] MEDS: INSULIN GLARGINE,HUM.REC.ANLOG 100 UNITS/ML SQ SCH (20:30)
[2017-08-30] MEDS: PANTOPRAZOLE SODIUM 40 MG/VIAL IVP SCH (20:30)
[2017-08-30 20:38] LABS: GLUCOSE,POINT OF CARE 100 MG/DL (70-110)
[2017-08-31] VITALS (7 sets, daily range): BP systolic 94–118; BP diastolic 36–52
[2017-08-31 01:23] LABS: GLUCOSE,POINT OF CARE 94 MG/DL (70-110)
[2017-08-31] MEDS: MORPHINE SULFATE 4 MG/ML SYRINGE IVP PRN (04:04)
[2017-08-31 05:37] LABS: ALANINE AMINOTRANSFERASE 157 U/L (12-78); ALKALINE PHOSPHATASE 66 U/L (46-116); ANION GAP 12 mmol/L (8-16); ASPARTATE AMINOTRANSFERASE 123 U/L (15-37); BILIRUBIN,TOTAL 1.3 mg/dL (0.1-1.0); CALCIUM, TOTAL 7.2 mg/dL (8.8-10.5); CARBON DIOXIDE 23 mmol/L (22-29); CHLORIDE 101 mmol/L (98-107); CREATININE 1.19 mg/dL (0.60-1.30); GLOMERULAR FILTR. RATE CALC > 60 mL/min (>60); GLUCOSE,RANDOM 99 mg/dL (70-110); LIPASE 43 U/L (73-393); POTASSIUM 3.1 mmol/L (3.5-5.1); SODIUM SERUM 136 mmol/L (136-145); TOTAL PROTEIN, SERUM 4.5 g/dL (6.4-8.2); UREA NITROGEN, BLOOD 17 mg/dL (7-18); VANCOMYCIN,RANDOM 21.7 mcg/mL (25.0-50.0)
[2017-08-31 06:43] LABS: GLUCOSE,POINT OF CARE 94 MG/DL (70-110)
[2017-08-31 07:42] LABS: EOSINOPHILS % (AUTO) 1.7 % (1.0-6.0); HEMATOCRIT 24.4 % (41-53); HEMOGLOBIN 8.5 g/dL (13.5-17.5); LYMPHOCYTES # (AUTO) 0.2 K/uL (1.0-4.8); MEAN CORPUSCULAR HGB CONC 34.8 G/dL (31.0-37.0); MEAN CORPUSCULAR VOLUME 89 fL (80-100); MONOCYTES # (AUTO) 0.3 K/uL (0.1-1.0); MONOCYTES % (AUTO) 4.3 % (2.0-9.0); NEUTROPHILS # (AUTO) 7.2 K/uL (1.8-7.7); RED BLOOD CELL COUNT(AUTO) 2.74 MIL/uL (4.50-5.90); RED CELL DISTRIBUTION WIDTH 15.3 % (11.5-14.5)
[2017-08-31] MEDS: PIPERACILLIN SODIUM/TAZOBACTAM 4.5 GM in DEXTROSE 5%-WATER 100 ML IV SCH ×3 (07:43→23:15)
[2017-08-31] MEDS: ALBUMIN HUMAN 25%-25GM/100ML 100 ML IV SCH ×3 (07:43→23:15)
[2017-08-31] MEDS: DOPamine HCL 800 MG/D5%-WATER 250 ML IV PRN (07:44)
[2017-08-31 08:01] LABS: PLATELET COUNT (AUTO) 8 K/uL (150-450)
[2017-08-31] MEDS ORDERED: MAGNESIUM SULFATE 1 GM in DEXTROSE 5%-WATER 50 ML IV ONE (08:30)
[2017-08-31] MEDS: PANTOPRAZOLE SODIUM 40 MG/VIAL IVP SCH ×2 (08:32→21:50)
[2017-08-31] MEDS: POTASSIUM CHL 10 MEQ/WATER 50 ML IV PRN ×4 (08:32→13:09)
[2017-08-31 09:07] LABS: PHOSPHORUS 1.1 mg/dL (2.5-4.9)
[2017-08-31 09:31] LABS: ABG A-A DIFF O2 137.1 mmHg (10-20.0); ABG BASE EXCESS -4.9 mmol/L (-2.0-3.0); ABG CARBOXYHEMOGLOBIN 1.2 % (0.0-1.5); ABG HCO3 20.9 mmol/L (22.0-26.0); ABG OXYGEN CONTENT 12.1 mL/dL (15.0-23.0); ABG OXYHEMOGLOBIN 94.8 % (94.0-100.0); ABG PCO2 31 mmHg (35-45); ABG PH 7.418 (7.35-7.450); O2 DEVICE,BLOOD GAS VENTILATOR (ROOM AIR); PO2, ARTERIAL BG 77.1 mmHg (79.0-87.0); SITE, BLOOD GAS ARTERIAL LINE; SOURCE, BLOOD GAS ARTERIAL; TEMPERATURE, FAHRENHEIT, BG 96.9 FAHREN (96.0-98.6)
[2017-08-31 09:32] LABS: PEEP,BG 5 cm H2O; VT, ABG 400 ml
[2017-08-31] MEDS: POTASSIUM CHLORIDE 20 MEQ in NXSTAGE RFP-402 K0/CA3 5,000 ML IRRIG PRN (09:49)
[2017-08-31] MEDS ORDERED: POTASSIUM PHOS,M-BASIC-D-BASIC 20 MMOL in DEXTROSE 5%-WATER 150 ML IV ONE (10:00)
[2017-08-31] MEDS: LevETIRAcetam 500 MG in DEXTROSE 5%-WATER 100 ML IV SCH ×2 (10:08→21:52)
[2017-08-31] MEDS ORDERED: SODIUM CHLORIDE 0.9% 500 ML IV ONE ×2 (13:05)
[2017-08-31 13:22] LABS: GLUCOSE,POINT OF CARE 94 MG/DL (70-110)
[2017-08-31 13:22] LABS: GLUCOSE,POINT OF CARE 129 MG/DL (70-110)
[2017-08-31 16:53] LABS: GLUCOSE,POINT OF CARE 161 MG/DL (70-110)
[2017-08-31 21:17] LABS: GLUCOSE,POINT OF CARE 137 MG/DL (70-110)
[2017-08-31] MEDS: INSULIN GLARGINE,HUM.REC.ANLOG 100 UNITS/ML SQ SCH (21:51)
[2017-09-01] VITALS (10 sets, daily range): BP systolic 85–128; BP diastolic 30–55
[2017-09-01] MEDS: POTASSIUM CHLORIDE 20 MEQ in NXSTAGE RFP-402 K0/CA3 5,000 ML IRRIG PRN ×3 (00:44→17:39)
[2017-09-01] MEDS: DOPamine HCL 800 MG/D5%-WATER 250 ML IV PRN ×2 (03:06→17:40)
[2017-09-01 05:12] LABS: ALANINE AMINOTRANSFERASE 90 U/L (12-78); ALBUMIN 2.4 g/dL (3.4-5.0); ALKALINE PHOSPHATASE 63 U/L (46-116); ANION GAP 12 mmol/L (8-16); ASPARTATE AMINOTRANSFERASE 56 U/L (15-37); BILIRUBIN,TOTAL 1.7 mg/dL (0.1-1.0); CALCIUM, TOTAL 7.7 mg/dL (8.8-10.5); CARBON DIOXIDE 24 mmol/L (22-29); CHLORIDE 101 mmol/L (98-107); CREATININE 1.13 mg/dL (0.60-1.30); GLOMERULAR FILTR. RATE CALC > 60 mL/min (>60); GLUCOSE,RANDOM 128 mg/dL (70-110); POTASSIUM 3.5 mmol/L (3.5-5.1); SODIUM SERUM 137 mmol/L (136-145); TOTAL PROTEIN, SERUM 4.8 g/dL (6.4-8.2); UREA NITROGEN, BLOOD 18 mg/dL (7-18)
[2017-09-01] MEDS ORDERED: VANCOMYCIN HCL 1 GM/D5% WATER 200 ML IV ONE (06:00)
[2017-09-01 06:38] LABS: GLUCOSE,POINT OF CARE 134 MG/DL (70-110)
[2017-09-01 06:38] LABS: GLUCOSE,POINT OF CARE 128 MG/DL (70-110)
[2017-09-01 07:07] LABS: HEMATOCRIT 24.6 % (41-53); HEMOGLOBIN 8.8 g/dL (13.5-17.5); LYMPHOCYTES # (AUTO) 0.3 K/uL (1.0-4.8); LYMPHOCYTES % (AUTO) 3.1 % (22.0-44.0); MEAN CORPUSCULAR HEMOGLOBIN 31.8 pg (26.0-34.0); MEAN CORPUSCULAR HGB CONC 35.6 G/dL (31.0-37.0); MEAN CORPUSCULAR VOLUME 89 fL (80-100); MONOCYTES # (AUTO) 0.2 K/uL (0.1-1.0); MONOCYTES % (AUTO) 2.5 % (2.0-9.0); NEUTROPHILS # (AUTO) 8.4 K/uL (1.8-7.7); RED BLOOD CELL COUNT(AUTO) 2.76 MIL/uL (4.50-5.90); RED CELL DISTRIBUTION WIDTH 15.4 % (11.5-14.5)
[2017-09-01 07:12] LABS: NEUTROPHILS % (AUTO) 92.4 % (40.0-70.0); PLATELET COUNT (AUTO) 3 K/uL (150-450)
[2017-09-01 08:12] LABS: PHOSPHORUS 0.6 mg/dL (2.5-4.9)
[2017-09-01] MEDS ORDERED: POTASSIUM PHOS,M-BASIC-D-BASIC 30 MEQ in DEXTROSE 5%-WATER 150 ML IV ONE (08:30)
[2017-09-01] MEDS: ALBUMIN HUMAN 25%-25GM/100ML 100 ML IV SCH ×3 (08:44→23:26)
[2017-09-01] MEDS: PIPERACILLIN SODIUM/TAZOBACTAM 4.5 GM in DEXTROSE 5%-WATER 100 ML IV SCH ×3 (08:44→23:26)
[2017-09-01] MEDS: PANTOPRAZOLE SODIUM 40 MG/VIAL IVP SCH ×2 (08:45→21:24)
[2017-09-01 08:53] LABS: ABG HCO3 24.8 mmol/L (22.0-26.0); ABG METHEMOGLOBIN 0.3 % (0.0-1.5); ABG PCO2 29 mmHg (35-45); SOURCE, BLOOD GAS ARTERIAL; TEMPERATURE, FAHRENHEIT, BG 98.3 FAHREN (96.0-98.6)
[2017-09-01] MEDS ORDERED: SODIUM CHLORIDE 0.9% 500 ML IV ONE (08:53)
[2017-09-01 08:55] LABS: ABG A-A DIFF O2 137.3 mmHg (10-20.0); ABG BASE EXCESS -0.1 mmol/L (-2.0-3.0); ABG CARBOXYHEMOGLOBIN 1.5 % (0.0-1.5); ABG OXYGEN CONTENT 12.9 mL/dL (15.0-23.0); ABG OXYGEN SATURATION 96.6 % (95.0-98.0); ABG OXYHEMOGLOBIN 94.9 % (94.0-100.0); ABG PH 7.509 (7.35-7.450); ABG TOTAL HEMOGLOBIN 9.6 G/dL (12.0-18.0); PO2, ARTERIAL BG 78.2 mmHg (79.0-87.0)
[2017-09-01 08:56] LABS: SITE, BLOOD GAS ARTERIAL LINE
[2017-09-01 08:57] LABS: O2 DEVICE,BLOOD GAS VENTILATOR (ROOM AIR)
[2017-09-01 08:58] LABS: PEEP,BG 5 cm H2O; VT, ABG 400 ml
[2017-09-01] MEDS: LevETIRAcetam 500 MG in DEXTROSE 5%-WATER 100 ML IV SCH ×2 (09:58→21:24)
[2017-09-01 10:18] LABS: GLUCOSE,POINT OF CARE 86 MG/DL (70-110)
[2017-09-01] MEDS: METOCLOPRAMIDE HCL 5 MG/ML 2 ML VIAL IVP SCH ×3 (11:54→23:25)
[2017-09-01 12:27] LABS: GLUCOSE,POINT OF CARE 120 MG/DL (70-110)
[2017-09-01 16:13] LABS: GLUCOSE,POINT OF CARE 122 MG/DL (70-110)
[2017-09-01] MEDS: NOREPINEPHRINE BITARTRATE 8 MG in DEXTROSE 5%-WATER 242 ML IV PRN (18:11)
[2017-09-01] MEDS: INSULIN GLARGINE,HUM.REC.ANLOG 100 UNITS/ML SQ SCH (21:00)
[2017-09-02] VITALS (10 sets, daily range): BP systolic 88–133; BP diastolic 39–71
[2017-09-02] MEDS: POTASSIUM CHLORIDE 20 MEQ in NXSTAGE RFP-402 K0/CA3 5,000 ML IRRIG PRN ×3 (03:19→08:14)
[2017-09-02 03:33] LABS: GLUCOSE,POINT OF CARE 129 MG/DL (70-110)
[2017-09-02 03:33] LABS: GLUCOSE,POINT OF CARE 110 MG/DL (70-110)
[2017-09-02] MEDS: INSULIN REGULAR, HUMAN 100 UNITS/ML SQ PRN ×4 (03:34→23:58)
[2017-09-02] MEDS: MORPHINE SULFATE 4 MG/ML SYRINGE IVP PRN (03:35)
[2017-09-02 05:20] LABS: ANION GAP 14 mmol/L (8-16); CALCIUM, TOTAL 7.8 mg/dL (8.8-10.5); CARBON DIOXIDE 23 mmol/L (22-29); CHLORIDE 100 mmol/L (98-107); CREATININE 1.03 mg/dL (0.60-1.30); GLOMERULAR FILTR. RATE CALC > 60 mL/min (>60); GLUCOSE,RANDOM 147 mg/dL (70-110); POTASSIUM 3.6 mmol/L (3.5-5.1); SODIUM SERUM 137 mmol/L (136-145); UREA NITROGEN, BLOOD 18 mg/dL (7-18)
[2017-09-02] MEDS: METOCLOPRAMIDE HCL 5 MG/ML 2 ML VIAL IVP SCH ×4 (05:25→23:29)
[2017-09-02] MEDS: POTASSIUM CHL 10 MEQ/WATER 50 ML IV PRN (05:30)
[2017-09-02] MEDS ORDERED: SODIUM CHLORIDE 0.9% 250 ML IV ONE ×3 (05:45→22:32)
[2017-09-02 05:57] LABS: HEMATOCRIT 23.3 % (41-53); HEMOGLOBIN 8.1 g/dL (13.5-17.5); MEAN CORPUSCULAR HEMOGLOBIN 31.2 pg (26.0-34.0); MEAN CORPUSCULAR HGB CONC 34.9 G/dL (31.0-37.0); MEAN CORPUSCULAR VOLUME 89 fL (80-100); RED CELL DISTRIBUTION WIDTH 15.5 % (11.5-14.5)
[2017-09-02 06:16] LABS: PHOSPHORUS 0.8 mg/dL (2.5-4.9)
[2017-09-02 06:17] LABS: PLATELET COUNT (AUTO) 7 K/uL (150-450)
[2017-09-02 06:53] LABS: GLUCOSE,POINT OF CARE 151 MG/DL (70-110)
[2017-09-02] MEDS ORDERED: POTASSIUM PHOS,M-BASIC-D-BASIC 30 MMOL in DEXTROSE 5%-WATER 250 ML IV ONE (07:00)
[2017-09-02] MEDS: PIPERACILLIN SODIUM/TAZOBACTAM 4.5 GM in DEXTROSE 5%-WATER 100 ML IV SCH ×3 (07:28→23:31)
[2017-09-02] MEDS: ALBUMIN HUMAN 25%-25GM/100ML 100 ML IV SCH ×3 (07:29→23:29)
[2017-09-02] MEDS: MAGNESIUM SULFATE 2 GM in DEXTROSE 5%-WATER 50 ML IV PRN (07:30)
[2017-09-02] MEDS: PANTOPRAZOLE SODIUM 40 MG/VIAL IVP SCH ×2 (08:02→20:25)
[2017-09-02 09:19] LABS: ABG A-A DIFF O2 151.7 mmHg (10-20.0); ABG BASE EXCESS -2.3 mmol/L (-2.0-3.0); ABG CARBOXYHEMOGLOBIN 2.4 % (0.0-1.5); ABG HCO3 22.5 mmol/L (22.0-26.0); ABG METHEMOGLOBIN 0.7 % (0.0-1.5); ABG OXYGEN CONTENT 9.9 mL/dL (15.0-23.0); ABG OXYGEN SATURATION 86.7 % (95.0-98.0); ABG PCO2 40 mmHg (35-45); ABG PH 7.379 (7.35-7.450); ABG TOTAL HEMOGLOBIN 8.3 G/dL (12.0-18.0); O2 DEVICE,BLOOD GAS VENTILATOR (ROOM AIR); PEEP,BG 5 cm H2O; PO2, ARTERIAL BG 52.2 mmHg (79.0-87.0); SITE, BLOOD GAS ARTERIAL LINE; SOURCE, BLOOD GAS ARTERIAL; TEMPERATURE, FAHRENHEIT, BG 98.1 FAHREN (96.0-98.6); VT, ABG 400 ml
[2017-09-02 09:58] LABS: BAND NEUTROPHILS % (MANUAL) 28 % (0-5); LYMPHOCYTES % (MANUAL) 15 % (22-44); REACTIVE LYMPHOCYTES 1 % (0-0); SEGMENTED NEUTROPHILS % 56 % (40-70)
[2017-09-02] MEDS: LevETIRAcetam 500 MG in DEXTROSE 5%-WATER 100 ML IV SCH ×2 (10:33→21:29)
[2017-09-02 11:27] LABS: GLUCOSE,POINT OF CARE 180 MG/DL (70-110)
[2017-09-02 11:27] LABS: GLUCOSE,POINT OF CARE 137 MG/DL (70-110)
[2017-09-02 12:27] LABS: LIPASE 56 U/L (73-393)
[2017-09-02 12:38] LABS: AMYLASE 3 U/L (25-115)
[2017-09-02] MEDS ORDERED: SODIUM CHLORIDE 0.9% 500 ML IV ONE (15:21)
[2017-09-02 19:49] LABS: GLUCOSE,POINT OF CARE 170 MG/DL (70-110)
[2017-09-02] MEDS: INSULIN GLARGINE,HUM.REC.ANLOG 100 UNITS/ML SQ SCH (20:26)
[2017-09-03] VITALS: BP 133/41
[2017-09-03 04:00] VITALS: BP 96/42
[2017-09-03 04:51] LABS: VANCOMYCIN,RANDOM 14.9 mcg/mL (25.0-50.0)
[2017-09-03] MEDS: INSULIN REGULAR, HUMAN 100 UNITS/ML SQ PRN ×5 (05:24→23:50)
[2017-09-03] MEDS: METOCLOPRAMIDE HCL 5 MG/ML 2 ML VIAL IVP SCH ×4 (05:26→23:46)
[2017-09-03 06:48] LABS: GLUCOSE,POINT OF CARE 203 MG/DL (70-110)
[2017-09-03 06:48] LABS: GLUCOSE,POINT OF CARE 196 MG/DL (70-110)
[2017-09-03 06:48] LABS: GLUCOSE,POINT OF CARE 157 MG/DL (70-110)
[2017-09-03] MEDS: ALBUMIN HUMAN 25%-25GM/100ML 100 ML IV SCH (07:46)
[2017-09-03] MEDS: PIPERACILLIN SODIUM/TAZOBACTAM 4.5 GM in DEXTROSE 5%-WATER 100 ML IV SCH (07:46)
[2017-09-03 08:00] VITALS: BP 105/56
[2017-09-03 08:13] LABS: GLUCOSE,POINT OF CARE 175 MG/DL (70-110)
[2017-09-03 08:14] LABS: ABG A-A DIFF O2 414.8 mmHg (10-20.0); ABG BASE EXCESS -3.7 mmol/L (-2.0-3.0); ABG HCO3 21.6 mmol/L (22.0-26.0); ABG METHEMOGLOBIN 0.3 % (0.0-1.5); ABG OXYGEN CONTENT 13.4 mL/dL (15.0-23.0); ABG OXYGEN SATURATION 99.7 % (95.0-98.0); ABG OXYHEMOGLOBIN 98.4 % (94.0-100.0); ABG PCO2 43 mmHg (35-45); ABG PH 7.333 (7.35-7.450); ABG TOTAL HEMOGLOBIN 9.2 G/dL (12.0-18.0); SOURCE, BLOOD GAS ARTERIAL
[2017-09-03 08:15] LABS: O2 DEVICE,BLOOD GAS VENTILATOR (ROOM AIR); SITE, BLOOD GAS ARTERIAL LINE
[2017-09-03 08:16] LABS: PEEP,BG 5 cm H2O; VT, ABG 400 ml
[2017-09-03 08:27] LABS: BASOPHILS % (AUTO) 0.4 % (0.0-2.0); EOSINOPHILS % (AUTO) 0.8 % (1.0-6.0); HEMATOCRIT 21.4 % (41-53); HEMOGLOBIN 7.5 g/dL (13.5-17.5); LYMPHOCYTES # (AUTO) 0.4 K/uL (1.0-4.8); LYMPHOCYTES % (AUTO) 9.2 % (22.0-44.0); MEAN CORPUSCULAR HEMOGLOBIN 31.1 pg (26.0-34.0); MEAN CORPUSCULAR HGB CONC 34.9 G/dL (31.0-37.0); MEAN CORPUSCULAR VOLUME 89 fL (80-100); MONOCYTES # (AUTO) 0.1 K/uL (0.1-1.0); MONOCYTES % (AUTO) 2.6 % (2.0-9.0); NEUTROPHILS # (AUTO) 3.7 K/uL (1.8-7.7); RED CELL DISTRIBUTION WIDTH 15.6 % (11.5-14.5)
[2017-09-03 08:28] LABS: CALCIUM, TOTAL 7.4 mg/dL (8.8-10.5); CREATININE 1.57 mg/dL (0.60-1.30); POTASSIUM 3.8 mmol/L (3.5-5.1)
[2017-09-03 08:36] LABS: PLATELET COUNT (AUTO) 18 K/uL (150-450)
[2017-09-03] MEDS: PANTOPRAZOLE SODIUM 40 MG/VIAL IVP SCH ×2 (08:53→20:06)
[2017-09-03] MEDS: LevETIRAcetam 500 MG in DEXTROSE 5%-WATER 100 ML IV SCH ×2 (10:00→22:35)
[2017-09-03] MEDS ORDERED: VANCOMYCIN HCL 1 GM/D5% WATER 200 ML IV ONE (10:00)
[2017-09-03 12:00] VITALS: BP 116/79
[2017-09-03] MEDS ORDERED: SODIUM CHLORIDE 0.9% 2,000 ML IV ONE (12:23)
[2017-09-03] MEDS ORDERED: SODIUM CITRATE 4% CATH FLUSH 5 ML SYRINGE IVP ONE ×2 (13:00)
[2017-09-03 15:18] LABS: GLUCOSE,POINT OF CARE 164 MG/DL (70-110)
[2017-09-03] MEDS: PIPERACILLIN SODIUM/TAZOBACTAM 2.25 GM in DEXTROSE 5%-WATER 50 ML IV SCH ×2 (15:37→23:46)
[2017-09-03 16:00] VITALS: BP 105/55
[2017-09-03 16:00] LABS: PHOSPHORUS 1.2 mg/dL (2.5-4.9)
[2017-09-03 16:23] LABS: GLUCOSE,POINT OF CARE 110 MG/DL (70-110)
[2017-09-03] MEDS ORDERED: SODIUM PHOS,M-BASIC-D-BASIC 30 MEQ in DEXTROSE 5%-WATER 150 ML IV ONE (16:30)
[2017-09-03] MEDS: NOREPINEPHRINE BITARTRATE 8 MG in DEXTROSE 5%-WATER 242 ML IV PRN (17:42)
[2017-09-03 20:00] VITALS: BP 122/42
[2017-09-03] MEDS: INSULIN GLARGINE,HUM.REC.ANLOG 100 UNITS/ML SQ SCH (21:00)
[2017-09-04] VITALS: BP 125/45
[2017-09-04] MEDS: INSULIN REGULAR, HUMAN 100 UNITS/ML SQ PRN ×5 (03:22→20:24)
[2017-09-04 04:00] VITALS: BP 136/48
[2017-09-04] MEDS: METOCLOPRAMIDE HCL 5 MG/ML 2 ML VIAL IVP SCH ×3 (05:49→17:22)
[2017-09-04] MEDS ORDERED: SODIUM CHLORIDE 0.9% 250 ML IV ONE ×2 (05:55→07:34)
[2017-09-04 06:15] LABS: ANION GAP 10 mmol/L (8-16); CALCIUM, TOTAL 7.1 mg/dL (8.8-10.5); CARBON DIOXIDE 24 mmol/L (22-29); CHLORIDE 99 mmol/L (98-107); CREATININE 1.36 mg/dL (0.60-1.30); GLOMERULAR FILTR. RATE CALC > 60 mL/min (>60); GLUCOSE,RANDOM 181 mg/dL (70-110); PHOSPHORUS 1.8 mg/dL (2.5-4.9); POTASSIUM 3.2 mmol/L (3.5-5.1); SODIUM SERUM 133 mmol/L (136-145); UREA NITROGEN, BLOOD 21 mg/dL (7-18); VANCOMYCIN,RANDOM 26.2 mcg/mL (25.0-50.0)
[2017-09-04 06:24] LABS: GLUCOSE,POINT OF CARE 170 MG/DL (70-110)
[2017-09-04 06:24] LABS: GLUCOSE,POINT OF CARE 179 MG/DL (70-110)
[2017-09-04 06:24] LABS: GLUCOSE,POINT OF CARE 182 MG/DL (70-110)
[2017-09-04] MEDS: POTASSIUM CHL 10 MEQ/WATER 50 ML IV PRN ×3 (06:53→08:37)
[2017-09-04] MEDS: MAGNESIUM SULFATE 2 GM in DEXTROSE 5%-WATER 50 ML IV PRN (07:16)
[2017-09-04] MEDS: PIPERACILLIN SODIUM/TAZOBACTAM 2.25 GM in DEXTROSE 5%-WATER 50 ML IV SCH ×2 (07:18→17:20)
[2017-09-04 07:38] LABS: EOSINOPHILS % (AUTO) 1.5 % (1.0-6.0); HEMATOCRIT 23.3 % (41-53); LYMPHOCYTES # (AUTO) 0.5 K/uL (1.0-4.8); LYMPHOCYTES % (AUTO) 11.6 % (22.0-44.0); MEAN CORPUSCULAR HEMOGLOBIN 30.5 pg (26.0-34.0); MEAN CORPUSCULAR HGB CONC 34.5 G/dL (31.0-37.0); MEAN CORPUSCULAR VOLUME 88 fL (80-100); MONOCYTES # (AUTO) 0.2 K/uL (0.1-1.0); MONOCYTES % (AUTO) 4.2 % (2.0-9.0); NEUTROPHILS # (AUTO) 3.6 K/uL (1.8-7.7); NEUTROPHILS % (AUTO) 81.7 % (40.0-70.0); RED BLOOD CELL COUNT(AUTO) 2.64 MIL/uL (4.50-5.90); RED CELL DISTRIBUTION WIDTH 15.6 % (11.5-14.5)
[2017-09-04 08:00] VITALS: BP 136/52
[2017-09-04 08:27] LABS: PLATELET COUNT (AUTO) 16 K/uL (150-450)
[2017-09-04] MEDS: PANTOPRAZOLE SODIUM 40 MG/VIAL IVP SCH ×2 (08:37→20:20)
[2017-09-04 08:48] LABS: ABG A-A DIFF O2 203.8 mmHg (10-20.0); ABG BASE EXCESS -2.6 mmol/L (-2.0-3.0); ABG CARBOXYHEMOGLOBIN 1.1 % (0.0-1.5); ABG HCO3 22.7 mmol/L (22.0-26.0); ABG METHEMOGLOBIN 0.2 % (0.0-1.5); ABG OXYGEN SATURATION 98.7 % (95.0-98.0); ABG OXYHEMOGLOBIN 97.4 % (94.0-100.0); ABG PCO2 32 mmHg (35-45); ABG TOTAL HEMOGLOBIN 8.6 G/dL (12.0-18.0); PO2, ARTERIAL BG 117.5 mmHg (79.0-87.0); SOURCE, BLOOD GAS ARTERIAL; TEMPERATURE, FAHRENHEIT, BG 98.3 FAHREN (96.0-98.6)
[2017-09-04 08:49] LABS: O2 DEVICE,BLOOD GAS VENTILATOR (ROOM AIR); PEEP,BG 5 cm H2O; SITE, BLOOD GAS ARTERIAL LINE; VT, ABG 400 ml
[2017-09-04 09:13] LABS: GLUCOSE,POINT OF CARE 185 MG/DL (70-110)
[2017-09-04] MEDS: LevETIRAcetam 500 MG in DEXTROSE 5%-WATER 100 ML IV SCH ×2 (10:15→22:01)
[2017-09-04] MEDS ORDERED: SODIUM PHOS,M-BASIC-D-BASIC 30 MMOL in DEXTROSE 5%-WATER 250 ML IV ONE (10:45)
[2017-09-04 12:00] VITALS: BP 92/40
[2017-09-04] MEDS ORDERED: SODIUM CHLORIDE 0.9% 500 ML IV ONE (13:13)
[2017-09-04 16:00] VITALS: BP 114/43
[2017-09-04 17:18] LABS: GLUCOSE,POINT OF CARE 179 MG/DL (70-110)
[2017-09-04 17:22] LABS: GLUCOSE,POINT OF CARE 174 MG/DL (70-110)
[2017-09-04] MEDS: NOREPINEPHRINE BITARTRATE 8 MG in DEXTROSE 5%-WATER 242 ML IV PRN (18:54)
[2017-09-04 20:00] VITALS: BP 95/38
[2017-09-04] MEDS: INSULIN GLARGINE,HUM.REC.ANLOG 100 UNITS/ML SQ SCH (20:21)
[2017-09-05] VITALS: BP 123/50
[2017-09-05] MEDS: PIPERACILLIN SODIUM/TAZOBACTAM 2.25 GM in DEXTROSE 5%-WATER 50 ML IV SCH ×3 (00:31→16:12)
[2017-09-05] MEDS: METOCLOPRAMIDE HCL 5 MG/ML 2 ML VIAL IVP SCH ×4 (00:31→19:15)
[2017-09-05] MEDS: INSULIN REGULAR, HUMAN 100 UNITS/ML SQ PRN ×3 (03:56→16:36)
[2017-09-05 04:00] VITALS: BP 123/45
[2017-09-05 07:14] LABS: GLUCOSE,POINT OF CARE 136 MG/DL (70-110)
[2017-09-05 07:14] LABS: GLUCOSE,POINT OF CARE 161 MG/DL (70-110)
[2017-09-05 07:14] LABS: GLUCOSE,POINT OF CARE 164 MG/DL (70-110)
[2017-09-05 08:00] VITALS: BP 97/42
[2017-09-05] MEDS: PANTOPRAZOLE SODIUM 40 MG/VIAL IVP SCH ×2 (08:11→21:04)
[2017-09-05] MEDS ORDERED: MANNITOL 25%-12.5 GM/50 ML VIAL IVP PRN (09:00)
[2017-09-05] MEDS ORDERED: SODIUM CITRATE 4% CATH FLUSH 5 ML SYRINGE IVP ONE ×2 (09:00)
[2017-09-05 09:01] LABS: CALCIUM, TOTAL 7.2 mg/dL (8.8-10.5); CREATININE 1.9 mg/dL (0.60-1.30); PHOSPHORUS 4.1 mg/dL (2.5-4.9); POTASSIUM 3.5 mmol/L (3.5-5.1)
[2017-09-05 09:56] LABS: ADAMTS13 ACTIVITY 28.9 % (>66.8)
[2017-09-05 09:58] LABS: GLUCOSE,POINT OF CARE 128 MG/DL (70-110)
[2017-09-05] MEDS ORDERED: VANCOMYCIN HCL 1 GM/D5% WATER 200 ML IV PRN (10:15)
[2017-09-05] MEDS: LevETIRAcetam 500 MG in DEXTROSE 5%-WATER 100 ML IV SCH ×2 (10:20→21:04)
[2017-09-05 12:00] VITALS: BP 110/49
[2017-09-05 12:28] LABS: GLUCOSE,POINT OF CARE 137 MG/DL (70-110)
[2017-09-05] MEDS: NOREPINEPHRINE BITARTRATE 8 MG in DEXTROSE 5%-WATER 242 ML IV PRN (13:27)
[2017-09-05 14:46] LABS: ABG A-A DIFF O2 163.9 mmHg (10-20.0); ABG BASE EXCESS -3.3 mmol/L (-2.0-3.0); ABG HCO3 22.1 mmol/L (22.0-26.0); ABG METHEMOGLOBIN 0.2 % (0.0-1.5); ABG OXYGEN CONTENT 14.7 mL/dL (15.0-23.0); ABG OXYGEN SATURATION 95.3 % (95.0-98.0); ABG OXYHEMOGLOBIN 94.2 % (94.0-100.0); ABG PCO2 35 mmHg (35-45); ABG PH 7.401 (7.35-7.450); O2 DEVICE,BLOOD GAS VENTILATOR (ROOM AIR); PEEP,BG 5 cm H2O; PO2, ARTERIAL BG 80.6 mmHg (79.0-87.0); SITE, BLOOD GAS ARTERIAL LINE; SOURCE, BLOOD GAS ARTERIAL; TEMPERATURE, FAHRENHEIT, BG 98.6 FAHREN (96.0-98.6); VT, ABG 400 ml
[2017-09-05 16:00] VITALS: BP 150/55
[2017-09-05 20:00] VITALS: BP 143/57
[2017-09-05] MEDS: INSULIN GLARGINE,HUM.REC.ANLOG 100 UNITS/ML SQ SCH (21:07)
[2017-09-05 21:08] LABS: GLUCOSE,POINT OF CARE 130 MG/DL (70-110)
[2017-09-05 21:08] LABS: GLUCOSE,POINT OF CARE 154 MG/DL (70-110)
[2017-09-06] VITALS: BP 134/54
[2017-09-06] MEDS: PIPERACILLIN SODIUM/TAZOBACTAM 2.25 GM in DEXTROSE 5%-WATER 50 ML IV SCH ×4 (00:11→23:45)
[2017-09-06] MEDS: METOCLOPRAMIDE HCL 5 MG/ML 2 ML VIAL IVP SCH ×5 (00:11→23:45)
[2017-09-06 04:00] VITALS: BP 129/45
[2017-09-06] MEDS: NOREPINEPHRINE BITARTRATE 8 MG in DEXTROSE 5%-WATER 242 ML IV PRN ×2 (04:40→20:15)
[2017-09-06 04:57] LABS: GLUCOSE,POINT OF CARE 139 MG/DL (70-110)
[2017-09-06 04:57] LABS: GLUCOSE,POINT OF CARE 111 MG/DL (70-110)
[2017-09-06 07:52] LABS: ABG HCO3 20.4 mmol/L (22.0-26.0); ABG PCO2 35 mmHg (35-45); ABG PH 7.372 (7.35-7.450); PO2, ARTERIAL BG 131.5 mmHg (79.0-87.0); SITE, BLOOD GAS ARTERIAL LINE; SOURCE, BLOOD GAS ARTERIAL; TEMPERATURE, FAHRENHEIT, BG 98.6 FAHREN (96.0-98.6)
[2017-09-06 07:53] LABS: ABG BASE EXCESS -5.4 mmol/L (-2.0-3.0); ABG CARBOXYHEMOGLOBIN 1.2 % (0.0-1.5); ABG METHEMOGLOBIN 0.3 % (0.0-1.5); ABG OXYGEN CONTENT 12.2 mL/dL (15.0-23.0); ABG OXYHEMOGLOBIN 97.3 % (94.0-100.0); ABG TOTAL HEMOGLOBIN 8.7 G/dL (12.0-18.0)
[2017-09-06 07:54] LABS: ABG A-A DIFF O2 113.6 mmHg (10-20.0); ABG OXYGEN SATURATION 98.8 % (95.0-98.0); O2 DEVICE,BLOOD GAS VENTILATOR (ROOM AIR); PEEP,BG 5 cm H2O; VT, ABG 400 ml
[2017-09-06 08:00] VITALS: BP 109/41
[2017-09-06] MEDS ORDERED: VANCOMYCIN HCL 1 GM/D5% WATER 200 ML IV ONE (08:00)
[2017-09-06] MEDS ORDERED: PIPERACILLIN SODIUM/TAZOBACTAM 0.75 GM in DEXTROSE 5%-WATER 50 ML IV PRN (09:00)
[2017-09-06] MEDS ORDERED: SODIUM CHLORIDE 0.9% 500 ML IV ONE ×2 (09:36→22:55)
[2017-09-06] MEDS: LevETIRAcetam 500 MG in DEXTROSE 5%-WATER 100 ML IV SCH ×2 (09:39→22:34)
[2017-09-06] MEDS: PANTOPRAZOLE SODIUM 40 MG/VIAL IVP SCH ×2 (09:40→21:08)
[2017-09-06 09:53] LABS: GLUCOSE,POINT OF CARE 89 MG/DL (70-110)
[2017-09-06 11:15] LABS: CALCIUM, TOTAL 7.7 mg/dL (8.8-10.5); CREATININE 2.03 mg/dL (0.60-1.30); POTASSIUM 3.2 mmol/L (3.5-5.1)
[2017-09-06 11:21] LABS: ALBUMIN 1.6 g/dL (3.4-5.0); BILIRUBIN,TOTAL 0.9 mg/dL (0.1-1.0); MAGNESIUM 1.6 mg/dL (1.80-2.40); PHOSPHORUS 3.2 mg/dL (2.5-4.9); TOTAL PROTEIN, SERUM 5.1 g/dL (6.4-8.2)
[2017-09-06] MEDS: POTASSIUM CHL 10 MEQ/WATER 50 ML IV PRN ×3 (11:55→12:01)
[2017-09-06] MEDS: INSULIN REGULAR, HUMAN 100 UNITS/ML SQ PRN (11:59)
[2017-09-06 12:00] VITALS: BP 109/41
[2017-09-06 12:04] LABS: GLUCOSE,POINT OF CARE 148 MG/DL (70-110)
[2017-09-06] MEDS: MAGNESIUM SULFATE 2 GM in DEXTROSE 5%-WATER 50 ML IV PRN (13:56)
[2017-09-06 16:00] VITALS: BP 83/33
[2017-09-06] MEDS ORDERED: MANNITOL 25%-12.5 GM/50 ML VIAL IVP ONE (18:22)
[2017-09-06 20:00] VITALS: BP 96/38
[2017-09-06] MEDS: INSULIN GLARGINE,HUM.REC.ANLOG 100 UNITS/ML SQ SCH (21:09)
[2017-09-06] MEDS ORDERED: SODIUM CHLORIDE 0.9% 250 ML IV ONE ×2 (22:54→22:55)
[2017-09-07] VITALS (7 sets, daily range): BP systolic 90–111; BP diastolic 49–67
[2017-09-07 05:11] LABS: ALBUMIN 1.5 g/dL (3.4-5.0); BILIRUBIN,TOTAL 0.8 mg/dL (0.1-1.0); CALCIUM, TOTAL 7.7 mg/dL (8.8-10.5); CREATININE 2.42 mg/dL (0.60-1.30); MAGNESIUM 2.1 mg/dL (1.80-2.40); PHOSPHORUS 3.7 mg/dL (2.5-4.9); POTASSIUM 3.7 mmol/L (3.5-5.1); TOTAL PROTEIN, SERUM 5.5 g/dL (6.4-8.2)
[2017-09-07 06:14] LABS: GLUCOSE,POINT OF CARE 80 MG/DL (70-110)
[2017-09-07 06:14] LABS: GLUCOSE,POINT OF CARE 106 MG/DL (70-110)
[2017-09-07 06:14] LABS: GLUCOSE,POINT OF CARE 137 MG/DL (70-110)
[2017-09-07 06:14] LABS: GLUCOSE,POINT OF CARE 119 MG/DL (70-110)
[2017-09-07] MEDS: METOCLOPRAMIDE HCL 5 MG/ML 2 ML VIAL IVP SCH (06:16)
[2017-09-07] MEDS: PANTOPRAZOLE SODIUM 40 MG/VIAL IVP SCH ×2 (08:17→20:23)
[2017-09-07] MEDS: PIPERACILLIN SODIUM/TAZOBACTAM 2.25 GM in DEXTROSE 5%-WATER 50 ML IV SCH ×2 (08:17→15:34)
[2017-09-07] MEDS ORDERED: METOCLOPRAMIDE HCL 5 MG/ML 2 ML VIAL IVP PRN (08:45)
[2017-09-07] MEDS: LevETIRAcetam 500 MG in DEXTROSE 5%-WATER 100 ML IV SCH ×2 (10:41→22:19)
[2017-09-07] MEDS: INSULIN REGULAR, HUMAN 100 UNITS/ML SQ PRN (12:19)
[2017-09-07] MEDS: NOREPINEPHRINE BITARTRATE 8 MG in DEXTROSE 5%-WATER 242 ML IV PRN (13:15)
[2017-09-07 15:36] LABS: C.DIFF GDH ANTIGEN, Stool Negative (Negative)
[2017-09-07 15:37] LABS: C.DIFF TOXINS A&B, Stool Negative (Negative)
[2017-09-07 15:47] LABS: GLUCOSE,POINT OF CARE 167 MG/DL (70-110)
[2017-09-07 15:47] LABS: GLUCOSE,POINT OF CARE 127 MG/DL (70-110)
[2017-09-07 15:47] LABS: GLUCOSE,POINT OF CARE 107 MG/DL (70-110)
[2017-09-07] MEDS: INSULIN GLARGINE,HUM.REC.ANLOG 100 UNITS/ML SQ SCH (20:25)
[2017-09-07] MEDS ORDERED: SODIUM CHLORIDE 0.9% 250 ML IV ONE (20:39)
[2017-09-07 23:08] LABS: GLUCOSE,POINT OF CARE 122 MG/DL (70-110)
[2017-09-08] VITALS: BP 91/47
[2017-09-08] MEDS: INSULIN REGULAR, HUMAN 100 UNITS/ML SQ PRN ×2 (00:03→04:26)
[2017-09-08] MEDS: PIPERACILLIN SODIUM/TAZOBACTAM 2.25 GM in DEXTROSE 5%-WATER 50 ML IV SCH ×4 (00:16→23:57)
[2017-09-08 04:00] VITALS: BP 91/47
[2017-09-08 04:55] LABS: BASOPHILS % (AUTO) 0.8 % (0.0-2.0); EOSINOPHILS % (AUTO) 1.2 % (1.0-6.0); HEMATOCRIT 21.8 % (41-53); HEMOGLOBIN 7.7 g/dL (13.5-17.5); LYMPHOCYTES # (AUTO) 0.8 K/uL (1.0-4.8); LYMPHOCYTES % (AUTO) 6.8 % (22.0-44.0); MEAN CORPUSCULAR HEMOGLOBIN 35.3 pg (26.0-34.0); MEAN CORPUSCULAR HGB CONC 35.5 G/dL (31.0-37.0); MEAN CORPUSCULAR VOLUME 100 fL (80-100); MONOCYTES # (AUTO) 0.2 K/uL (0.1-1.0); MONOCYTES % (AUTO) 1.8 % (2.0-9.0); NEUTROPHILS # (AUTO) 10.1 K/uL (1.8-7.7); PLATELET COUNT (AUTO) 31 K/uL (150-450); RED BLOOD CELL COUNT(AUTO) 2.19 MIL/uL (4.50-5.90); RED CELL DISTRIBUTION WIDTH 15.7 % (11.5-14.5)
[2017-09-08 04:59] LABS: NEUTROPHILS % (AUTO) 89.4 % (40.0-70.0)
[2017-09-08 05:15] LABS: CALCIUM, TOTAL 7.5 mg/dL (8.8-10.5); CREATININE 2.82 mg/dL (0.60-1.30); MAGNESIUM 2.1 mg/dL (1.80-2.40); PHOSPHORUS 4.1 mg/dL (2.5-4.9); POTASSIUM 3.2 mmol/L (3.5-5.1)
[2017-09-08 05:33] LABS: GLUCOSE,POINT OF CARE 106 MG/DL (70-110)
[2017-09-08 05:33] LABS: GLUCOSE,POINT OF CARE 154 MG/DL (70-110)
[2017-09-08] MEDS ORDERED: SODIUM CITRATE 4% CATH FLUSH 5 ML SYRINGE IVP ONE ×2 (07:15)
[2017-09-08] MEDS ORDERED: MANNITOL 25%-12.5 GM/50 ML VIAL IVP PRN (07:15)
[2017-09-08 07:40] LABS: PLATELET MORPHOLOGY COMMENT GIANT PLTS PRESENT
[2017-09-08 08:00] VITALS: BP 96/53
[2017-09-08 09:31] LABS: % IRON SATURATION 72.7 % (30-44)
[2017-09-08 10:00] LABS: FIBRIN SPLIT PRODUCTS Greater than 40 mcg/mL (<10)
[2017-09-08 10:27] LABS: D-DIMER 7.14 mg/L FEU (0.00-0.50); FIBRINOGEN 337 mg/dL (200-400); INR 1.5 (0.9-1.1)
[2017-09-08 10:41] LABS: ABG A-A DIFF O2 103.4 mmHg (10-20.0); ABG BASE EXCESS -0.1 mmol/L (-2.0-3.0); ABG CARBOXYHEMOGLOBIN 2.4 % (0.0-1.5); ABG HCO3 24.6 mmol/L (22.0-26.0); ABG METHEMOGLOBIN 0.4 % (0.0-1.5); ABG OXYGEN CONTENT 13.8 mL/dL (15.0-23.0); ABG OXYGEN SATURATION 93.8 % (95.0-98.0); ABG OXYHEMOGLOBIN 91.2 % (94.0-100.0); ABG PCO2 36 mmHg (35-45); ABG PH 7.445 (7.35-7.450); ABG TOTAL HEMOGLOBIN 10.7 G/dL (12.0-18.0); O2 DEVICE,BLOOD GAS VENTILATOR (ROOM AIR); PO2, ARTERIAL BG 68.8 mmHg (79.0-87.0); SITE, BLOOD GAS RT RADIAL; SOURCE, BLOOD GAS ARTERIAL; TEMPERATURE, FAHRENHEIT, BG 97.8 FAHREN (96.0-98.6)
[2017-09-08 10:42] LABS: PEEP,BG 5 cm H2O; VT, ABG 400 ml
[2017-09-08] MEDS: PANTOPRAZOLE SODIUM 40 MG/VIAL IVP SCH ×2 (10:59→20:20)
[2017-09-08] MEDS: LevETIRAcetam 500 MG in DEXTROSE 5%-WATER 100 ML IV SCH ×2 (10:59→22:42)
[2017-09-08 12:00] VITALS: BP 80/47
[2017-09-08 14:19] LABS: FOLATE SERUM 3.8 ng/mL (5.4-); VITAMIN B12 LEVEL > 2000 pg/mL (211-911)
[2017-09-08] MEDS ORDERED: MORPHINE SULFATE 4 MG/ML SYRINGE IVP PRN (15:30)
[2017-09-08] MEDS: NOREPINEPHRINE BITARTRATE 8 MG in DEXTROSE 5%-WATER 242 ML IV PRN (15:51)
[2017-09-08 15:54] LABS: GLUCOSE,POINT OF CARE 94 MG/DL (70-110)
[2017-09-08 16:00] VITALS: BP 112/65
[2017-09-08 19:23] LABS: GLUCOSE,POINT OF CARE 127 MG/DL (70-110)
[2017-09-08 20:00] VITALS: BP 110/48
[2017-09-08] MEDS: INSULIN GLARGINE,HUM.REC.ANLOG 100 UNITS/ML SQ SCH (20:21)
[2017-09-08] MEDS ORDERED: SODIUM CHLORIDE 0.9% 250 ML IV ONE (22:52)
[2017-09-09] VITALS (7 sets, daily range): BP systolic 86–136; BP diastolic 47–72
[2017-09-09] MEDS: INSULIN REGULAR, HUMAN 100 UNITS/ML SQ PRN ×3 (00:13→23:55)
[2017-09-09] MEDS: NOREPINEPHRINE BITARTRATE 8 MG in DEXTROSE 5%-WATER 242 ML IV PRN (02:24)
[2017-09-09 05:04] LABS: INR 1.4 (0.9-1.1); PROTHROMBIN TIME 14.6 SEC (9.4-11.6)
[2017-09-09 06:17] LABS: CALCIUM, TOTAL 7.3 mg/dL (8.8-10.5); CREATININE 2.22 mg/dL (0.60-1.30); POTASSIUM 3.2 mmol/L (3.5-5.1); VANCOMYCIN,RANDOM 19.8 mcg/mL (25.0-50.0)
[2017-09-09 07:03] LABS: GLUCOSE,POINT OF CARE 143 MG/DL (70-110)
[2017-09-09 07:36] LABS: BASOPHILS % (AUTO) 0.5 % (0.0-2.0); EOSINOPHILS % (AUTO) 0.3 % (1.0-6.0); HEMOGLOBIN 7.2 g/dL (13.5-17.5); LYMPHOCYTES # (AUTO) 0.7 K/uL (1.0-4.8); LYMPHOCYTES % (AUTO) 5.7 % (22.0-44.0); MEAN CORPUSCULAR HEMOGLOBIN 31.5 pg (26.0-34.0); MEAN CORPUSCULAR HGB CONC 34.5 G/dL (31.0-37.0); MEAN CORPUSCULAR VOLUME 91 fL (80-100); MONOCYTES # (AUTO) 0.5 K/uL (0.1-1.0); MONOCYTES % (AUTO) 3.9 % (2.0-9.0); NEUTROPHILS # (AUTO) 11.3 K/uL (1.8-7.7); PLATELET COUNT (AUTO) 29 K/uL (150-450); RED CELL DISTRIBUTION WIDTH 15.7 % (11.5-14.5)
[2017-09-09 07:41] LABS: NEUTROPHILS % (AUTO) 89.6 % (40.0-70.0)
[2017-09-09 07:49] LABS: GLUCOSE,POINT OF CARE 168 MG/DL (70-110)
[2017-09-09 07:49] LABS: GLUCOSE,POINT OF CARE 194 MG/DL (70-110)
[2017-09-09] MEDS: PIPERACILLIN SODIUM/TAZOBACTAM 2.25 GM in DEXTROSE 5%-WATER 50 ML IV SCH ×2 (08:21→15:10)
[2017-09-09] MEDS: PANTOPRAZOLE SODIUM 40 MG/VIAL IVP SCH ×2 (08:21→21:03)
[2017-09-09 09:44] LABS: PLATELET MORPHOLOGY COMMENT GIANT PLTS PRESENT
[2017-09-09] MEDS: LevETIRAcetam 500 MG in DEXTROSE 5%-WATER 100 ML IV SCH ×2 (10:09→22:33)
[2017-09-09 18:19] LABS: GLUCOSE,POINT OF CARE 107 MG/DL (70-110)
[2017-09-09 18:33] LABS: GLUCOSE,POINT OF CARE 130 MG/DL (70-110)
[2017-09-09] MEDS: INSULIN GLARGINE,HUM.REC.ANLOG 100 UNITS/ML SQ SCH (21:01)
[2017-09-10] VITALS: BP 99/57
[2017-09-10] MEDS: NOREPINEPHRINE BITARTRATE 8 MG in DEXTROSE 5%-WATER 242 ML IV PRN (02:45)
[2017-09-10] MEDS ORDERED: SODIUM CHLORIDE 0.9% 250 ML IV ONE (02:48)
[2017-09-10 04:00] VITALS: BP 83/48
[2017-09-10] MEDS ORDERED: VANCOMYCIN HCL 1 GM/D5% WATER 200 ML IV ONE (06:00)
[2017-09-10] MEDS ORDERED: SODIUM CHLORIDE 0.9% 1,000 ML IV ONE ×2 (07:03)
[2017-09-10 07:43] LABS: GLUCOSE,POINT OF CARE 101 MG/DL (70-110)
[2017-09-10 07:43] LABS: GLUCOSE,POINT OF CARE 166 MG/DL (70-110)
[2017-09-10 07:43] LABS: GLUCOSE,POINT OF CARE 141 MG/DL (70-110)
[2017-09-10 08:00] VITALS: BP 95/46
[2017-09-10 08:11] LABS: CALCIUM, TOTAL 7.9 mg/dL (8.8-10.5); CREATININE 2.95 mg/dL (0.60-1.30); POTASSIUM 3.3 mmol/L (3.5-5.1)
[2017-09-10] MEDS: FOLIC ACID 1 MG TABLET PO SCH (09:08)
[2017-09-10] MEDS: PANTOPRAZOLE SODIUM 40 MG/VIAL IVP SCH ×2 (09:09→22:20)
[2017-09-10] MEDS ORDERED: SODIUM CITRATE 4% CATH FLUSH 5 ML SYRINGE IVP PRN ×4 (09:45)
[2017-09-10] MEDS: LevETIRAcetam 500 MG in DEXTROSE 5%-WATER 100 ML IV SCH ×2 (10:26→22:22)
[2017-09-10 12:00] VITALS: BP 78/61
[2017-09-10 12:08] LABS: GLUCOSE,POINT OF CARE 85 MG/DL (70-110)
[2017-09-10] MEDS ORDERED: CloNIDine HCL 0.1 MG TABLET PO PRN (15:15)
[2017-09-10 16:00] VITALS: BP 120/84
[2017-09-10 17:33] LABS: GLUCOSE,POINT OF CARE 85 MG/DL (70-110)
[2017-09-10 20:00] VITALS: BP 128/63
[2017-09-10] MEDS: INSULIN GLARGINE,HUM.REC.ANLOG 100 UNITS/ML SQ SCH (22:22)
[2017-09-11] VITALS (7 sets, daily range): BP systolic 64–119; BP diastolic 40–63
[2017-09-11] MEDS: NOREPINEPHRINE BITARTRATE 8 MG in DEXTROSE 5%-WATER 242 ML IV PRN (00:03)
[2017-09-11] MEDS: DEXTROSE 50%-WATER 25 GM/50 ML SYG IVP PRN ×3 (06:14→17:53)
[2017-09-11 06:43] LABS: GLUCOSE,POINT OF CARE 175 MG/DL (70-110)
[2017-09-11] MEDS: PANTOPRAZOLE SODIUM 40 MG/VIAL IVP SCH ×2 (08:57→20:32)
[2017-09-11] MEDS: FOLIC ACID 1 MG TABLET PO SCH (08:57)
[2017-09-11] MEDS: LevETIRAcetam 500 MG in DEXTROSE 5%-WATER 100 ML IV SCH (10:09)
[2017-09-11 19:03] LABS: GLUCOSE,POINT OF CARE 116 MG/DL (70-110)
[2017-09-11] MEDS: INSULIN GLARGINE,HUM.REC.ANLOG 100 UNITS/ML SQ SCH (20:28)
[2017-09-11 21:04] LABS: GLUCOSE,POINT OF CARE 102 MG/DL (70-110)
[2017-09-12] MEDS ORDERED: FAMO20TA8 PO (07:11)
[2017-09-12] MEDS ORDERED: ESCI10TA PO (07:11)
[2017-09-12] MEDS ORDERED: METO25XL PO (07:11)
[2017-09-12] MEDS ORDERED: OMEP20 PO (07:11)
[2017-09-12] MEDS ORDERED: PARO20TA24 PO (07:11)
[2017-09-12] MEDS ORDERED: MONT10TA21 PO (07:11)
[2017-09-12] MEDS ORDERED: ASPI81 PO (07:11)
[2017-09-12] MEDS ORDERED: LOVA20 PO (07:11)
[2017-09-12] MEDS ORDERED: TAMS0.4C32 PO (07:11)
[2017-09-12] MEDS ORDERED: MIRT15 PO (07:11)
[2017-09-12] MEDS ORDERED: BACL10TA PO (07:11)
[2017-09-12] MEDS ORDERED: TRAZ-147 PO (07:11)
[2017-09-12] MEDS ORDERED: MEMA28CA5 PO (07:11)
[2017-09-12] MEDS ORDERED: BUPR100T6 PO (07:11)
[2017-09-12] MEDS ORDERED: AMLO-512 PO (07:11)
[2017-09-13 00:39] LABS: GLUCOSE,POINT OF CARE 93 MG/DL (70-110)
[2017-09-13 00:39] LABS: GLUCOSE,POINT OF CARE 53 MG/DL (70-110)
[2017-09-13 00:39] LABS: GLUCOSE,POINT OF CARE 45 MG/DL (70-110)
[2017-09-13 00:39] LABS: GLUCOSE,POINT OF CARE 94 MG/DL (70-110)
[2017-09-13 00:39] LABS: GLUCOSE,POINT OF CARE 132 MG/DL (70-110)
== END 2017-09-11 21:42 | disposition expired | DRG 870 ==
LOC: EDBD 15:27 → EMS 15:27 → ICU 18:33
PROVIDERS: ADMIT Internal Medicine; ATTEND Internal Medicine
PROC: 5A1955Z Respiratory Ventilation, Greater than 96 Consecutive Hours (ICD-10-PCS; principal; 2017-08-25)
PROC: 0BH17EZ Insertion of Endotracheal Airway into Trachea, Via Natural or Artificial Opening (ICD-10-PCS; 2017-08-25)
PROC: 06HM33Z Insertion of Infusion Device into Right Femoral Vein, Percutaneous Approach (ICD-10-PCS; 2017-08-26)
PROC: B54BZZA Ultrasonography of Right Lower Extremity Veins, Guidance (ICD-10-PCS; 2017-08-26)
PROC: 06HN33Z Insertion of Infusion Device into Left Femoral Vein, Percutaneous Approach (ICD-10-PCS; 2017-08-27)
PROC: B54CZZA Ultrasonography of Left Lower Extremity Veins, Guidance (ICD-10-PCS; 2017-08-27)
PROC: 04HK33Z Insertion of Infusion Device into Right Femoral Artery, Percutaneous Approach (ICD-10-PCS; 2017-08-27)
PROC: 5A1D90Z Performance of Urinary Filtration, Continuous, Greater than 18 hours Per Day (ICD-10-PCS; 2017-08-27)
PROC: 30233R1 Transfusion of Nonautologous Platelets into Peripheral Vein, Percutaneous Approach (ICD-10-PCS; 2017-08-28)
PROC: 5A1D90Z Performance of Urinary Filtration, Continuous, Greater than 18 hours Per Day (ICD-10-PCS; 2017-08-28)
PROC: 5A1D90Z Performance of Urinary Filtration, Continuous, Greater than 18 hours Per Day (ICD-10-PCS; 2017-08-29)
PROC: 5A1D90Z Performance of Urinary Filtration, Continuous, Greater than 18 hours Per Day (ICD-10-PCS; 2017-08-30)
PROC: 5A1D90Z Performance of Urinary Filtration, Continuous, Greater than 18 hours Per Day (ICD-10-PCS; 2017-08-31)
PROC: 5A1D90Z Performance of Urinary Filtration, Continuous, Greater than 18 hours Per Day (ICD-10-PCS; 2017-09-01)
PROC: 5A1D90Z Performance of Urinary Filtration, Continuous, Greater than 18 hours Per Day (ICD-10-PCS; 2017-09-02)
PROC: 5A1D70Z Performance of Urinary Filtration, Intermittent, Less than 6 Hours Per Day (ICD-10-PCS; 2017-09-03)
PROC: 5A1D70Z Performance of Urinary Filtration, Intermittent, Less than 6 Hours Per Day (ICD-10-PCS; 2017-09-05)
PROC: 5A1D70Z Performance of Urinary Filtration, Intermittent, Less than 6 Hours Per Day (ICD-10-PCS; 2017-09-08)
PROC: 5A1D70Z Performance of Urinary Filtration, Intermittent, Less than 6 Hours Per Day (ICD-10-PCS; 2017-09-10)
DX: A41.9 Sepsis, unspecified organism (principal); J96.01 Acute respiratory failure with hypoxia; K85.90 Acute pancreatitis without necrosis or infection, unspecified; E11.10 Type 2 diabetes mellitus with ketoacidosis without coma; E43 Unspecified severe protein-calorie malnutrition; J15.0 Pneumonia due to Klebsiella pneumoniae; N17.0 Acute kidney failure with tubular necrosis; R65.21 Severe sepsis with septic shock; D61.818 Other pancytopenia; E87.0 Hyperosmolality and hypernatremia; E87.1 Hypo-osmolality and hyponatremia; K92.2 Gastrointestinal hemorrhage, unspecified; M62.82 Rhabdomyolysis; Z99.11 Dependence on respirator [ventilator] status; Z68.1 Body mass index [BMI] 19.9 or less, adult; E83.51 Hypocalcemia; E87.6 Hypokalemia; E87.5 Hyperkalemia; K72.90 Hepatic failure, unspecified without coma; D69.59 Other secondary thrombocytopenia; E11.22 Type 2 diabetes mellitus with diabetic chronic kidney disease; E83.39 Other disorders of phosphorus metabolism; E83.42 Hypomagnesemia; F10.20 Alcohol dependence, uncomplicated; I46.9 Cardiac arrest, cause unspecified; N18.9 Chronic kidney disease, unspecified; R57.1 Hypovolemic shock; Z51.5 Encounter for palliative care; Z66 Do not resuscitate; B96.1 Klebsiella pneumoniae [K. pneumoniae] as the cause of diseases classified elsewhere; Z99.2 Dependence on renal dialysis; Z78.1 Physical restraint status
CPT/HCPCS: 31500; 43752; 51702; 70450; 72125; 76700; 76770; 82010; 82271; 82570; 82607; 82728; 82746; 82805; 82948; 83036; 83540; 83550; 83605; 83615; 83735; 84100; 84132; 84145; 84156; 84300; 84443; 84460; 84540; 85045; 85362; 85379; 85384; 85397; 86803; 86850; 86900; 86901; 87040; 87070; 87081; 87168; 87205; 87324; 87340; 87449; 90935; 90947; 92950; 93005; 93306; 93970; 94002; 94003; 95816; 96361; 96374; 96375; 99291; C9113; G0480; G0481; J0171; J0330; J0461; J0610; J0712; J1265; J1644; J1815; J2150; J2270; J2310; J2370; J2543; J2765; J3370; J3475; J3480; J3490; J7030; J7040; J7050; J7060; P9035; P9046